=== PATIENT | female | born 1975 | race Caucasian/White ===

== ENCOUNTER 2020-08-11 15:09 | Outpatient (REF) | payer OTHER, SELFPAY | END 2020-08-11 15:10 | disposition home or self-care (01) | LOC: HO.LAB 15:09 | PROVIDERS: Visit Provider Internal Medicine | DX: Z20.822 Contact with and (suspected) exposure to COVID-19 (principal) | CPT/HCPCS: 36415; C9803; U0003; U0005 ==

== ENCOUNTER 2020-12-17 10:00 | Outpatient (RCR) | payer OTHER, SELFPAY | END 2021-06-04 14:26 | disposition home or self-care (01) | LOC: HO.PT 10:00 | PROVIDERS: Visit Provider Family Medicine | DX: M54.5 Low back pain (principal) | CPT/HCPCS: 97110; 97140; 97161; 97530; 97535 ==

== ENCOUNTER 2022-01-03 11:18 | Emergency (ER) | payer OTHER, SELFPAY ==
[2022-01-03 11:48] VITALS: BP 133/88; PULSE 72; RESP 19; TEMP 36.8; O2SAT 100; BMI 29.2
[2022-01-03 11:58] LABS: MANUAL DIFF FLAG NO
[2022-01-03 12:00] LABS: Basophils Absolute Auto 0.1 X10*3/uL (0.0-0.2); Basophils Percent Auto 0.6 % (0-2); Eosinophils Absolute Auto 0.4 X10*3/uL (0.0-0.4); Eosinophils Percent Auto 4.8 % (0-4); Hematocrit 36.1 % (37.0-47.0); Hemoglobin 11.6 g/dl (12.0-16.0); Imm Gran Abs Auto 0.02 X10*3/uL (0.00-0.03); Imm Gran Pct Auto 0.2 % (0.0-0.4); Lymphocytes Absolute Auto 2.6 X10*3/uL (1.2-4.9); Mean Corpuscular HGB Conc 32.1 g/dl (31.0-35.0); Mean Corpuscular Hemoglobin 29.1 pg (27.0-33.0); Mean Corpuscular Volume 90.5 fL (80.0-98.0); Mean Platelet Volume 9.9 fL (9.4-12.3); Monocytes Absolute Auto 0.6 X10*3/uL (0.1-1.2); Monocytes Percent Auto 7.6 % (2-11); Neutrophils Absolute Auto 4.5 x10*3/uL (2.0-8.3); Neutrophils Percent Auto 54.8 % (45-73); Platelet Count 394 X10*3/uL (160-400); Red Blood Count 3.99 X10*6/uL (4.20-5.50); Red Cell Distribution Width 13.8 % (11.0-16.0); White Blood Count 8.2 X10*3/uL (4.8-10.8)
[2022-01-03 12:22] LABS: Alanine Aminotransferase 15 U/L (0-31); Albumin Level 3.9 g/dL (3.5-5.0); Alkaline Phosphatase 59 U/L (39-117); Anion Gap 9 (12-20); Aspartate Amino Transferase 16 U/L (5-31); Bilirubin Total 0.3 mg/dL (0.0-1.0); Blood Urea Nitrogen 4 mg/dL (9-16); Calcium 8.9 mg/dL (8.4-10.2); Carbon Dioxide 26 mmol/L (22-29); Chloride 106 mmol/L (96-108); Creatinine Clr Calc Pharmacy 100.9; Estimated Glomerular Filt Rate > 60; Glucose Random 96 mg/dL (60-115); Sodium 137 mmol/L (135-145); Total Protein 6.5 g/dL (6.5-8.0)
--- NOTE | 2022-01-03 15:20 | ED.GENADULT ---
HPI - General Adult General Chief complaint: Abdominal Pain Stated complaint: L flank pain after eating Time Seen by Provider: 01/03/22 14:57 Source: patient Mode of arrival: ambulatory Limitations: no limitations History of Present Illness HPI narrative: 46-year-old female presents to ED for lower abdominal pain/cramping and diarrhea since traveling from [facility]. patient states the day before last day in [facility] she started having some lower abdominal cramping with watery diarrhea. Patient denies any blood in stool. Patient states no fever or chills, chest pain, shortness of breath, vomiting, vaginal bleeding, dysuria, blood in urine. Patient denies any chest pain, shortness of breath, flank pain, calf pain, coughing up blood. Related Data Previous Rx's Medication Instructions Recorded azithromycin 500 mg tablet See Rx Instructions PO .COMPLEX 01/03/22 travelers diarrhea #3 tabs naproxen 500 mg tablet 500 mg PO BID PRN pain 10 days #20 01/03/22 tabs Allergies Allergy/AdvReac Type Severity Reaction Status Date / Time No Known Allergies Allergy Verified 01/03/22 11:47 Review of Systems Review of Systems: lower abdominal pain and diarrhea PMFSH Past Medical History Medical History (Updated 01/03/22 @ 17:17 by BRYCE Curry) Asthma Chronic back pain Social History Social History Alcohol intake: current Alcohol intake frequency: holidays/special occasions only Patient Tobacco Use Status: Current everyday Tobacco user Smoked in Last 30 Days: Yes Use of substances other than those prescribed or required for medical reasons: No Advance Directives: No Advance Directives Information Provided: Yes Patient : No Physical Exam ED Vital Signs: Vital Signs - 24 hr 01/03/22 11:48 01/03/22 16:00 01/03/22 17:53 Temperature 98.3 F Pulse Rate 72 68 63 Respiratory Rate 19 18 16 Blood Pressure 133/88 119/74 121/75 Pulse Oximetry 100 97 99 Oxygen Delivery Method Room Air Room Air Room Air BMI result Body Mass Index 29.2 Const General: cooperative, healthy appearing, comfortable, no acute distress, well developed, alert, awake and Physically active Orientation/consciousness: oriented to time and patient oriented x3 HENMT Head: Yes normal to inspection, Yes No palpable skull fracture present, Yes normocephalic, Yes atraumatic and No abrasion Eyes General: appearance normal, both eyes and all related structures Neck Neck: Yes normal visual inspection, Yes full ROM, Yes no lymphadenopathy, Yes no meningeal signs, Yes trachea midline, Yes supple, No anterior neck swelling and No tender Chest Chest palpation & inspection: normal inspection of the chest and normal palpation of entire chest wall Resp Effort & Inspection: normal respiratory effort and able to speak in complete sentences Auscultation: clear to auscultation bilaterally Cardio Jugular venous distension: no JVD Heart sounds: S1 normal heart sound present and S2 normal heart sound present GI Inspection: Yes normal to inspection and No abdominal wall ecchymosis Palpation (GI): Soft to palpation, not firm, Tenderness to palpation present (GI) in the LLQ, no guarding and not rigid General: No CVA tenderness and Yes no CVA tenderness Back/Spine/Pelvis Back: no CVA tenderness, No CVA tenderness and No back tenderness Skin General skin exam: no rashes or lesions noted and elasticity normal Neuro General: oriented to time, patient oriented x3, gait normal, no meningeal signs and CN's II-XI intact bilaterally Cranial nerves: Yes CN's II-XII intact bilaterally Extrem General: Yes normal to inspection and Yes full ROM Psych Appearance: grossly normal, well kempt and not disheveled Course Course Course Narrative: Patient does not have any significant abdominal tenderness. Basic labs ordered. Urinalysis ordered. Covid ordered. Patient states past couple days brown diarrhea but now it was loose watery stool and not able to give a stool sample. Reevaluation(s) Reevaluation #1: Labs are normal. Negative for white blood cell count. Abdomen benign soft nontender after medication. UA negative for UTI or . Will discharge as traveler's diarrhea. Time: 17:12 Medical Decision Making [facility] Narrative Medical decision making narrative: Traveler's Diarrhea Lab Data Result diagrams: 01/03/22 11:52 01/03/22 11:52 Labs: Lab Results 01/03/22 01/03/22 01/03/22 Range/Units 11:52 11:52 15:58 WBC 8.2 (4.8-10.8) X10*3/uL RBC 3.99 L (4.20-5.50) X10*6/uL Hgb 11.6 L (12.0-16.0) g/dl Hct 36.1 L (37.0-47.0) % MCV 90.5 (80.0-98.0) fL MCH 29.1 (27.0-33.0) pg MCHC 32.1 (31.0-35.0) g/dl RDW 13.8 (11.0-16.0) % Plt Count 394 (160-400) X10*3/uL MPV 9.9 (9.4-12.3) fL Immature Gran % (Auto) 0.2 (0.0-0.4) % Neut % (Auto) 54.8 (45-73) % Lymph % (Auto) 32.0 (20-40) % [place] % (Auto) 7.6 (2-11) % Eos % (Auto) 4.8 H (0-4) % Baso % (Auto) 0.6 (0-2) % Lymph # (Auto) 2.6 (1.2-4.9) X10*3/uL [place] # (Auto) 0.6 (0.1-1.2) X10*3/uL Eos # (Auto) 0.4 (0.0-0.4) X10*3/uL Baso # (Auto) 0.1 (0.0-0.2) X10*3/uL Abs Immat Gran (auto) 0.02 (0.00-0.03) X10*3/uL Absolute Neuts (auto) 4.5 (2.0-8.3) x10*3/uL Absolute Nucleated RBC 0.000 (0.0-0.012) X10*3/uL Nucleated RBC % (auto) 0.0 (0.0-0.2) /100WBC Sodium 137 (135-145) mmol/L Potassium 4.0 (3.3-5.1) mmol/L Chloride 106 (96-108) mmol/L Carbon Dioxide 26 (22-29) mmol/L Anion Gap 9 L (12-20) BUN 4 L (9-16) mg/dL Creatinine 0.70 (0.5-1.4) mg/dL Estim Creat Clear Calc 100.9 Estimated GFR > 60 Random Glucose 96 (60-115) mg/dL Calcium 8.9 (8.4-10.2) mg/dL Total Bilirubin 0.3 (0.0-1.0) mg/dL AST 16 (5-31) U/L ALT 15 (0-31) U/L Alkaline Phosphatase 59 (39-117) U/L Total Protein 6.5 (6.5-8.0) g/dL Albumin 3.9 (3.5-5.0) g/dL Urine Color Urine Appearance Urine pH (5.0-8.0) Ur Specific [place] (1.005-1.025) Urine Protein (NEG-TRACE) MG/DL Urine Glucose (UA) (NEG) MG/DL Urine Ketones (NEG) MG/DL Urine Blood (NEG) Urine Nitrite (NEG) Ur Leukocyte Esterase (NEG) Urine Test (NEGATIVE) COVID-19 (JENY) Negative (Negative) COVID-19 Clin Com See Note 01/03/22 01/03/22 Range/Units 15:58 15:58 WBC (4.8-10.8) X10*3/uL RBC (4.20-5.50) X10*6/uL Hgb (12.0-16.0) g/dl Hct (37.0-47.0) % MCV (80.0-98.0) fL MCH (27.0-33.0) pg MCHC (31.0-35.0) g/dl RDW (11.0-16.0) % Plt Count (160-400) X10*3/uL MPV (9.4-12.3) fL Immature Gran % (Auto) (0.0-0.4) % Neut % (Auto) (45-73) % Lymph % (Auto) (20-40) % [place] % (Auto) (2-11) % Eos % (Auto) (0-4) % Baso % (Auto) (0-2) % Lymph # (Auto) (1.2-4.9) X10*3/uL [place] # (Auto) (0.1-1.2) X10*3/uL Eos # (Auto) (0.0-0.4) X10*3/uL Baso # (Auto) (0.0-0.2) X10*3/uL Abs Immat Gran (auto) (0.00-0.03) X10*3/uL Absolute Neuts (auto) (2.0-8.3) x10*3/uL Absolute Nucleated RBC (0.0-0.012) X10*3/uL Nucleated RBC % (auto) (0.0-0.2) /100WBC Sodium (135-145) mmol/L Potassium (3.3-5.1) mmol/L Chloride (96-108) mmol/L Carbon Dioxide (22-29) mmol/L Anion Gap (12-20) BUN (9-16) mg/dL Creatinine (0.5-1.4) mg/dL Estim Creat Clear Calc Estimated GFR Random Glucose (60-115) mg/dL Calcium (8.4-10.2) mg/dL Total Bilirubin (0.0-1.0) mg/dL AST (5-31) U/L ALT (0-31) U/L Alkaline Phosphatase (39-117) U/L Total Protein (6.5-8.0) g/dL Albumin (3.5-5.0) g/dL Urine Color YELLOW Urine Appearance CLEAR Urine pH 6.0 (5.0-8.0) Ur Specific [place] >= 1.030 H (1.005-1.025) Urine Protein NEG (NEG-TRACE) MG/DL Urine Glucose (UA) NEG (NEG) MG/DL Urine Ketones NEG (NEG) MG/DL Urine Blood NEG (NEG) Urine Nitrite NEG (NEG) Ur Leukocyte Esterase NEG (NEG) Urine Test NEGATIVE (NEGATIVE) COVID-19 (JENY) (Negative) COVID-19 Clin Com Discharge Plan Discharge Clinical Impression: Diarrhea, travelers' Patient Disposition: Home, Self-Care Instructions: Traveler's Diarrhea (ED) Additional Instructions: labs and UA came back normal. COVID swab came back negative. He will be discharged with antibiotics to treat traveler's diarrhea. Recommend plenty of oral hydration with water, Gatorade, or Powerade. Recommend brat diet ( Bannana, Rice, Apple sauce, and toast). return to ED for any worsening abdominal pain, nausea, vomiting, flank pain, fever, chills, blood in stool, vomiting blood, chest pain, shortness of breath, calf pain, leg swelling, coughing up blood, chest pain on inspiration, or any other concerning symptoms. Please follow-up with primary care provider. Prescriptions: New azithromycin 500 mg tablet See Rx Instructions .ROUTE .COMPLEX Qty: 3 0RF Rx Instructions: For 500 mg dose pack: take 500 mg once daily for 3 days naproxen 500 mg tablet 500 mg PO BID PRN (Reason: pain) 10 Days Qty: 20 0RF Stand Alone Forms: Work/School Release Interventions: ED Discharge Assessment Last Done: 01/03/22 17:56 Discharge Date/Time: 01/03/22 17:56 Print Language: Lithuanian
[2022-01-03] MEDS: Famotidine 20 MG TABLET PO (15:50)
[2022-01-03] MEDS: Simethicone 80 MG TAB.CHEW 160 MG PO (15:50)
[2022-01-03] MEDS: Magnesium Hydrox/Alum Hydrox 30 ML ORAL.SUSP PO (15:52)
[2022-01-03] MEDS: Lidocaine HCl Viscous 2 % 15 ML SOLUTION MUCOUS MEM (15:52)
--- NOTE | 2022-01-03 15:54 | PC.NURSE ---
medicated per provider order. pt report 9/10 abd pain. urine sent to lab
[2022-01-03 16:00] VITALS: BP 119/74; PULSE 68; RESP 18; O2SAT 97
[2022-01-03 16:09] LABS: Appearance Urine CLEAR; Color Urine YELLOW; Glucose Urine UA NEG (NEG); Leukocyte Esterase Urine NEG (NEG); Nitrite Urine NEG (NEG); Specific Gravity - Urine >= 1.030 (1.005-1.025); Urine Blood NEG (NEG); Urine Ketones NEG (NEG); Urine Protein NEG (NEG-TRACE)
[2022-01-03 16:11] LABS: UPreg QC Valid YES; Urine Pregnancy NEGATIVE (NEGATIVE)
[2022-01-03 16:25] LABS: COVID-19 Test Negative (Negative); IDNOW Serial# 16C4AD1C
[2022-01-03 17:53] VITALS: BP 121/75; PULSE 63; RESP 16; O2SAT 99
== END 2022-01-03 17:56 | disposition home or self-care (01) ==
PROVIDERS: Physician Assistant; Emergency Provider Emergency Medicine Emergency Medical Services; PCP Nurse Practitioner Primary Care
DX: R19.7 Diarrhea, unspecified (principal); R10.30 Lower abdominal pain, unspecified; F17.200 Nicotine dependence, unspecified, uncomplicated; Z20.822 Contact with and (suspected) exposure to COVID-19; Z79.899 Other long term (current) drug therapy; Z71.6 Tobacco abuse counseling
CPT/HCPCS: 36415; 80053; 81003; 81025; 85025; 87635; 99283; 99284

== ENCOUNTER 2022-02-12 22:44 | Emergency (ER) | payer OTHER, SELFPAY ==
--- NOTE | ~2022-02-12 | XR_ITS ---
EXAMINATION: XR CHEST CLINICAL INFORMATION: Short of breath COMPARISON: 05/23/2011 TECHNIQUE: Frontal view of the chest was obtained. FINDINGS: Lung volumes are low. Mild central vascular prominence without overt edema. No effusion. No dense consolidation. No pneumothorax. The cardiomediastinal silhouette is within normal limits. XR/XR chest 1V IMPRESSION: Central vascular prominence without overt edema.
--- NOTE | 2022-02-12 22:51 | ED_ITS ---
HPI - SOB/Dyspnea General Chief Complaint: Dyspnea Stated Complaint: asthma Time Seen by Provider: 02/12/22 22:51 Source: patient and EMS Mode of arrival: EMS Limitations: no limitations History of Present Illness HPI Narrative: Patient comes to the emergency room complaining of an asthma exacerbation that started earlier today. Patient attempted giving herself to albuterol palms without any relief. When EMS was called, patient's oxygen saturation was in the mid 80s, patient received 1 DuoNeb, 125 mg of Solu-Medrol and 2 g of magnesium. When patient arrived to emergency room, patient saturating 100% on room air, speaking full sentences. Patient complaining of mild chest tightness, no chest pain. Related Data Previous Rx's Medication Instructions Recorded azithromycin 500 mg tablet See Rx Instructions PO .COMPLEX 01/03/22 travelers diarrhea #3 tabs naproxen 500 mg tablet 500 mg PO BID PRN pain 10 days #20 01/03/22 tabs albuterol sulfate 90 mcg/actuation 2 puff inhalation Q4-6H PRN 02/13/22 aerosol inhaler shortness of breath or wheezing #8.5 grams nirmatrelvir 300 mg (150 mg See Rx Instructions PO .COMPLEX 02/13/22 x2)-ritonavir 100 mg tablet,dose #30 ea pack(EUA) (Paxlovid) prednisone 50 mg tablet 50 mg PO DAILY #5 tabs 02/13/22 Allergies Allergy/AdvReac Type Severity Reaction Status Date / Time No Known Allergies Allergy Verified 01/03/22 11:47 Review of Systems Review of Systems: Constitutional : No Weight loss, No Fever, No Chills, No Night Sweats, No Fatigue, No Malaise ENT/Mouth : No Hearing loss, No Ear Pain, No Nasal Congestion, No Sinus Pain, No Hoarseness, No sore throat, No Rhinorrhea, No Swallowing Difficulty Eyes: No Eye Pain, No Swelling, No Redness, No Foreign Body, No Discharge, No Vision Changes Cardiovascular : No Chest Pain, No SOB, No Dyspnea on Exertion, No Orthopnea, No Edema, No Palpitations Respiratory : No Cough, No Sputum, complaining of wheezing, shortness of breath, chest tightness Gastrointestinal : No Nausea, No Vomiting, No Diarrhea, No Constipation, No abdominal Pain, No Hematochezia, No Melena Genitourinary : no irregular bleeding, No Dysuria, No Urinary Frequency, No Hematuria, No Urinary Incontinence, No Urgency, No Flank Pain, No Urinary Flow Changes, No Hesitancy Musculoskeletal : No joint pain, No Myalgias, No Joint Swelling Skin : No Skin Lesions, No rash Neuro : No Weakness, No Numbness, No Paresthesias, No Loss of Consciousness, No Dizziness, No Headache Psych : No Anxiety/Panic, No Depression, No SI/HI/AH/VH, No Social Issues, Heme/Lymph: No Bruising, No Bleeding,No Lymphadenopathy Endocrine : No Polyuria, No Polydipsia, No Temperature Intolerance [facility] Past Medical History Medical History Asthma Chronic back pain Social History Social History Alcohol intake: current Alcohol intake frequency: holidays/special occasions only Patient Tobacco Use Status: Current everyday Tobacco user Advance Directives: No Advance Directives Information Provided: Yes Physical Exam Vital Signs: Vital Signs: Last Vital Signs Temp 99.7 F 02/12/22 22:52 Pulse 107 H 02/12/22 22:52 Resp 28 H 02/12/22 22:52 BP 120/69 02/12/22 22:52 Pulse Ox 99 02/12/22 22:52 O2 Del Method 02/12/22 22:52 BMI result Body Mass Index 32.4 Const: Other: Appearance: Alert. Oriented X3. No acute distress. Eyes: Pupils equal, round and reactive to light. ENT: Pharynx normal. Neck: Normal inspection. Neck supple. No lymph nodes noted. No crepitus CVS: Normal heart rate and rhythm. Pulses normal. Normal S1 and S2 Respiratory: No respiratory distress. No Wheezing. No rales very minimal and occasional wheezing bilaterally, good air movement Abdomen: Soft and nontender. No rigidity. No distention. Skin: Skin warm and dry. Normal skin color. Normal skin turgor. Extremities: No lower extremity edema. No Lacerations. No Rash Neuro: Oriented X 3. No motor deficit. No sensory deficit. Moving all extremities. No slurred speech. CN 2 through 12 grossly intact Psych: calm, cooperative, normal affect Course Course Course Narrative: Prior to arriving to the hospital, patient received IV magnesium, Solu-Medrol and DuoNeb. Patient receiving 1 dose of albuterol neb Patient's oxygen saturation remains at 99% on room air. Even with ambulation in her room. Patient tested positive for COVID-19. Patient stamps started in the last 24 hours, she is in the window treatment for PAxlovid MDM - SOB/Dyspnea Lab Data Result diagrams: 02/12/22 23:10 02/12/22 23:10 Labs: Lab Results 02/12/22 02/12/22 02/12/22 Range/Units 23:10 23:10 23:10 WBC 8.5 (4.8-10.8) X10*3/uL RBC 3.87 L (4.20-5.50) X10*6/uL Hgb 11.2 L (12.0-16.0) g/dl Hct 34.2 L (37.0-47.0) % MCV 88.4 (80.0-98.0) fL MCH 28.9 (27.0-33.0) pg MCHC 32.7 (31.0-35.0) g/dl RDW 13.7 (11.0-16.0) % Plt Count 331 (160-400) X10*3/uL MPV 10.0 (9.4-12.3) fL Immature Gran % (Auto) 0.4 (0.0-0.4) % Neut % (Auto) 75.1 H (45-73) % Lymph % (Auto) 11.9 L (20-40) % [place] % (Auto) 9.3 (2-11) % Eos % (Auto) 2.7 (0-4) % Baso % (Auto) 0.6 (0-2) % Lymph # (Auto) 1.0 L (1.2-4.9) X10*3/uL [place] # (Auto) 0.8 (0.1-1.2) X10*3/uL Eos # (Auto) 0.2 (0.0-0.4) X10*3/uL Baso # (Auto) 0.1 (0.0-0.2) X10*3/uL Abs Immat Gran (auto) 0.03 (0.00-0.03) X10*3/uL Absolute Neuts (auto) 6.4 (2.0-8.3) x10*3/uL Absolute Nucleated RBC 0.000 (0.0-0.012) X10*3/uL Nucleated RBC % (auto) 0.0 (0.0-0.2) /100WBC Sodium 139 (135-145) mmol/L Potassium 3.6 (3.3-5.1) mmol/L Chloride 106 (96-108) mmol/L Carbon Dioxide 22 (22-29) mmol/L Anion Gap 15 (12-20) BUN 8 L D (9-16) mg/dL Creatinine 0.71 (0.5-1.4) mg/dL Estim Creat Clear Calc 101.0 Estimated GFR > 60 Random Glucose 113 (60-115) mg/dL Calcium 8.8 (8.4-10.2) mg/dL Troponin I High Sens (<3.5-17.0) ng/L COVID-19 (JENY) Positive A (Negative) COVID-19 Clin Com See Note 02/12/22 Range/Units 23:10 WBC (4.8-10.8) X10*3/uL RBC (4.20-5.50) X10*6/uL Hgb (12.0-16.0) g/dl Hct (37.0-47.0) % MCV (80.0-98.0) fL MCH (27.0-33.0) pg MCHC (31.0-35.0) g/dl RDW (11.0-16.0) % Plt Count (160-400) X10*3/uL MPV (9.4-12.3) fL Immature Gran % (Auto) (0.0-0.4) % Neut % (Auto) (45-73) % Lymph % (Auto) (20-40) % [place] % (Auto) (2-11) % Eos % (Auto) (0-4) % Baso % (Auto) (0-2) % Lymph # (Auto) (1.2-4.9) X10*3/uL [place] # (Auto) (0.1-1.2) X10*3/uL Eos # (Auto) (0.0-0.4) X10*3/uL Baso # (Auto) (0.0-0.2) X10*3/uL Abs Immat Gran (auto) (0.00-0.03) X10*3/uL Absolute Neuts (auto) (2.0-8.3) x10*3/uL Absolute Nucleated RBC (0.0-0.012) X10*3/uL Nucleated RBC % (auto) (0.0-0.2) /100WBC Sodium (135-145) mmol/L Potassium (3.3-5.1) mmol/L Chloride (96-108) mmol/L Carbon Dioxide (22-29) mmol/L Anion Gap (12-20) BUN (9-16) mg/dL Creatinine (0.5-1.4) mg/dL Estim Creat Clear Calc Estimated GFR Random Glucose (60-115) mg/dL Calcium (8.4-10.2) mg/dL Troponin I High Sens < 3.5 (<3.5-17.0) ng/L COVID-19 (JENY) (Negative) COVID-19 Clin Com Imaging Data Chest x-ray: Radiologist's impression: FINDINGS: Lung volumes are low. Mild central vascular prominence without overt edema. No effusion. No dense consolidation. No pneumothorax. The cardiomediastinal silhouette is within normal limits. XR/XR chest 1V IMPRESSION: Central vascular prominence without overt edema. ? Discharge Plan Discharge Clinical Impression: Asthma, COVID-19 Patient Disposition: Home, Self-Care Instructions: COVID-19 (Coronavirus Disease 2019) (ED) Additional Instructions: Please follow-up with your primary care physician tomorrow. If you have any worsening or new symptoms, please return to the emergency room or call 911 Prescriptions: New albuterol sulfate 90 mcg/actuation HFA aerosol inhaler 2 puff inhalation Q4-6H PRN (Reason: shortness of breath or wheezing) Qty: 8.5 1RF prednisone 50 mg tablet 50 mg PO DAILY Qty: 5 0RF Paxlovid (EUA) 300 mg (150 mg x 2)-100 mg tablets,dose pack See Rx Instructions .ROUTE .COMPLEX Qty: 30 0RF Rx Instructions: take TWO 150 mg tablets of nirmatrelvir with ONE 100 mg tablet of ritonavir twice daily for 5 days No Action azithromycin 500 mg tablet See Rx Instructions .ROUTE .COMPLEX Qty: 3 0RF Rx Instructions: For 500 mg dose pack: take 500 mg once daily for 3 days naproxen 500 mg tablet 500 mg PO BID PRN (Reason: pain) 10 Days Qty: 20 0RF
[2022-02-12 22:52] VITALS: BP 117/70; BP 120/69; PULSE 105; PULSE 107; RESP 28; TEMP 37.6; O2SAT 98; O2SAT 99; BMI 32.4
--- NOTE | 2022-02-12 22:53 | ECG_ITS ---
Test Reason : DYSPNEA Blood Pressure : / mmHG Vent. Rate : 107 BPM Atrial Rate : 107 BPM P-R Int : 148 ms QRS Dur : 088 ms QT Int : 362 ms P-R-T Axes : 069 035 038 degrees QTc Int : 483 ms Sinus tachycardia Possible Left atrial enlargement Nonspecific ST and T wave abnormality Abnormal ECG No previous ECGs available Referred By: Yen Ireland Electronically Signed By:KONRAD PHAN
[2022-02-12 23:18] LABS: Basophils Absolute Auto 0.1 X10*3/uL (0.0-0.2); Basophils Percent Auto 0.6 % (0-2); Eosinophils Absolute Auto 0.2 X10*3/uL (0.0-0.4); Eosinophils Percent Auto 2.7 % (0-4); Hematocrit 34.2 % (37.0-47.0); Hemoglobin 11.2 g/dl (12.0-16.0); Imm Gran Abs Auto 0.03 X10*3/uL (0.00-0.03); Imm Gran Pct Auto 0.4 % (0.0-0.4); Lymphocytes Percent Auto 11.9 % (20-40); MANUAL DIFF FLAG NO; Mean Corpuscular HGB Conc 32.7 g/dl (31.0-35.0); Mean Corpuscular Hemoglobin 28.9 pg (27.0-33.0); Mean Corpuscular Volume 88.4 fL (80.0-98.0); Monocytes Absolute Auto 0.8 X10*3/uL (0.1-1.2); Monocytes Percent Auto 9.3 % (2-11); Neutrophils Absolute Auto 6.4 x10*3/uL (2.0-8.3); Neutrophils Percent Auto 75.1 % (45-73); Platelet Count 331 X10*3/uL (160-400); Red Blood Count 3.87 X10*6/uL (4.20-5.50); Red Cell Distribution Width 13.7 % (11.0-16.0); White Blood Count 8.5 X10*3/uL (4.8-10.8)
[2022-02-12 23:28] LABS: COVID-19 Test Positive (Negative)
[2022-02-12 23:35] LABS: Anion Gap 15 (12-20); Blood Urea Nitrogen 8 mg/dL (9-16); Calcium 8.8 mg/dL (8.4-10.2); Carbon Dioxide 22 mmol/L (22-29); Chloride 106 mmol/L (96-108); Estimated Glomerular Filt Rate > 60; Glucose Random 113 mg/dL (60-115); Potassium 3.6 mmol/L (3.3-5.1); Sodium 139 mmol/L (135-145)
[2022-02-12 23:37] LABS: Troponin-I High Sensitivity < 3.5 ng/L (<3.5-17.0)
[2022-02-12] MEDS: Albuterol Sulfate (0.083%) 2.5 MG/3 ML VIAL.NEB INHALE (23:37)
[2022-02-13 01:21] VITALS: BP 102/56; PULSE 98; RESP 20; TEMP 36.8; O2SAT 99
== END 2022-02-13 01:51 | disposition home or self-care (01) ==
PROVIDERS: Emergency Provider Emergency Medicine
DX: U07.1 COVID-19 (principal); J45.909 Unspecified asthma, uncomplicated; F17.200 Nicotine dependence, unspecified, uncomplicated
CPT/HCPCS: 36415; 71045; 80048; 84484; 85025; 87635; 93005; 99284

== ENCOUNTER 2022-02-19 11:52 | Outpatient (REF) | payer OTHER, SELFPAY ==
[2022-02-19 12:17] LABS: COVID-19 Test Positive (Negative); IDNOW Serial# 08D9AD1C
== END 2022-02-19 11:53 | disposition home or self-care (01) ==
LOC: HO.LAB 11:52
PROVIDERS: Visit Provider Internal Medicine
DX: Z20.822 Contact with and (suspected) exposure to COVID-19 (principal)
CPT/HCPCS: 87635; C9803

== ENCOUNTER 2022-02-26 12:12 | Outpatient (REF) | payer OTHER, SELFPAY ==
[2022-02-26 13:07] LABS: COVID-19 Test Negative (Negative)
== END 2022-02-26 12:13 | disposition home or self-care (01) ==
LOC: HO.LAB 12:12
PROVIDERS: Visit Provider Internal Medicine
DX: Z20.822 Contact with and (suspected) exposure to COVID-19 (principal)
CPT/HCPCS: 87635; C9803

== ENCOUNTER 2023-12-19 10:12 | Emergency (ER) | payer OTHER, SELFPAY ==
--- NOTE | ~2023-12-19 | CT_ITS ---
EXAMINATION: CT HEAD WITHOUT CONTRAST CLINICAL INFORMATION: Headache COMPARISON: CT head September 27, 2018 TECHNIQUE: Contiguous axial imaging was performed from the skull base to vertex without intravenous administration of contrast. Coronal and sagittal reformatted images are performed at the CT scanner. [This CT examination was performed using dose optimization techniques as appropriate, variously including the following: *Automated exposure control *Adjustment of mA and/or kV according to patient size (this includes techniques or standardized protocols for targeted exams where dose is matched to indication/reason for exam; i.e. extremities or head) *Use of iterative reconstruction technique] DLP: 581 mGy-cm. FINDINGS: There is no evidence of acute intracranial hemorrhage or territorial infarction. No abnormal mass-effect or midline shift is seen. [place] to white matter differentiation is well preserved. No extra-axial fluid collections are identified. The ventricles are normal in size. There is no abnormal attenuation within the brain parenchyma. There is a tiny hyperdensity in the right basal ganglia still present unchanged since CAT scan September 27, 2018 consistent with a small calcification. Axial image 166/269 series 6. There is no osseous abnormality. There is density opacifying the dependent portion of the right and left maxillary sinus. On the left this is likely due to a large retention cyst. The right there is some fluid in mucosal thickening. Small air-fluid level present in the left sphenoid sinus. Trace fluid in the left mastoid air cells. Right mastoid air cells are normally aerated. Middle ear cavity is normally aerated. Frontal sinuses are hypoplastic. CT/CT head/brain wo IV con IMPRESSION: No acute intracranial pathology.
[2023-12-19 10:38] VITALS: BP 122/98; PULSE 75; RESP 16; TEMP 36.6; O2SAT 100; BMI 29.2
--- NOTE | 2023-12-19 10:44 | ECG_ITS ---
Test Reason : RT SIDED CHEST PAIN Blood Pressure : / mmHG Vent. Rate : 069 BPM Atrial Rate : 069 BPM P-R Int : 148 ms QRS Dur : 082 ms QT Int : 408 ms P-R-T Axes : 048 030 035 degrees QTc Int : 437 ms Normal sinus rhythm Normal ECG When compared to the previous EKG of No significant changes seen Referred By: Generic ED Physician Electronically Signed By:BETTYE DUPONT MD
--- NOTE | 2023-12-19 13:57 | ED_ITS ---
HPI - Headache General Chief Complaint: Headache Stated Complaint: r sided head pain down into shoulder Time Seen by Provider: 12/19/23 16:15 Source: patient Mode of arrival: ambulatory History of Present Illness ED Provider: Dr. 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 Related Data Home Medications ?Medication ?Instructions ?Recorded ?Confirmed estradiol 0.025 mg/24 hr weekly 1 patch transdermal QWEEK 11/14/23 transdermal patch fluoride (sodium) 1.1 % dental PO 11/14/23 paste fluticasone propionate 110 1 puff inhalation BID 11/14/23 mcg/actuation HFA aerosol inhaler gabapentin 300 mg capsule 900 mg PO TID 11/14/23 meclizine 25 mg tablet 25 mg PO TID 11/14/23 meloxicam 15 mg tablet 15 mg PO DAILY 11/14/23 naloxone 4 mg/actuation nasal spray intranasal 11/14/23 oxycodone 10 mg tablet,crush mg PO 11/14/23 resistant,extended release 12 hr (OxyContin) oxycodone-acetaminophen 5 mg-325 1 tab PO QID PRN 11/14/23 mg tablet progesterone micronized 200 mg mg PO 11/14/23 capsule Previous Rx's ?Medication ?Instructions ?Recorded albuterol sulfate 90 mcg/actuation 2 puff inhalation Q4-6H PRN 02/13/22 aerosol inhaler shortness of breath or wheezing #8.5 grams cyclobenzaprine 10 mg tablet 10 mg PO BEDTIME PRN muscle spasm 12/19/23 #5 tabs Allergies Allergy/AdvReac Type Severity Reaction Status Date / Time buprenorphine [From Butrans] Allergy Unknown Nausea, Verified 12/19/23 10:43 pruritis, appetite supression morphine [From MS Contin] Allergy Unknown Nausea, Verified 12/19/23 10:43 rash Review of Systems 2 Review of Systems: Pertinent positives and negatives as stated in HPI PMFSH Past Medical History Source: nursing notes reviewed Medical History Chronic sacroiliac joint pain Family history of breast cancer Osteoarthritis Neuropathy Pain in buttock Chronic low back pain Pain in lower limb Narrowing of intervertebral disc space Asthma Chronic back pain Surgical History H/O: knee surgery Family History Family History Mother Type 2 diabetes mellitus Sister Breast cancer Social History Social History Alcohol intake: current Alcohol intake frequency: holidays/special occasions only Patient Tobacco Use Status: Current everyday Tobacco user Advance Directives: No Advance Directives Information Provided: Yes Physical Exam 2 Vital Signs: Vital Signs: Last Vital Signs Temp 97.8 F 12/19/23 10:38 Pulse 75 12/19/23 10:38 Resp 16 12/19/23 10:38 BP 122/98 H 12/19/23 10:38 Pulse Ox 100 12/19/23 10:38 O2 Del Method Room Air 12/19/23 10:38 BMI result Body Mass Index 29.2 VITAL SIGNS: Reviewed. GENERAL: Well developed, well nourished, in no acute distress. HEAD: Normocephalic/atraumatic EYES: PERRLA, EOMI EARS: Ext canals without abnormality, TMs non-bulging and non-erythematous NOSE: Nares patent bilateral OROPHARYNX: no oral lesions noted, posterior pharynx clear and non-erythematous without noted tonsillar enlargement/erythema/exudates NECK: Supple, no adenopathy, there is noted muscle firmness along the shoulder trapezius on the right that extends up to the right basal skull, no midline cervical spine tenderness to palpation or step-offs noted LUNGS: Normal breath sounds. No adventitious sounds or accessory muscle use. SpO2<100> CARDIOVASCULAR: Regular rate and rhythm without noted murmurs ABDOMEN: Soft, non-tender, non-distended with bowel sounds. MUSCULOSKELETAL: No tenderness, deformities, or effusions noted on gross inspection. EXTREMITIES: No cyanosis, clubbing or edema. SKIN: Inspection of the skin reveals no rashes NEUROLOGIC: Alert and oriented x 4. Strength and sensation to light touch were grossly intact x 4, no facial asymmetry, no pronator drift, cranial nerves 2-12 are grossly intact. Course Course Course Narrative: This is a rapid medical exam completed by Felicia GROVERN: Additional HPI, ROS, PE not included below will be deferred to primary provider. Right sided headache since this morning radiating into right ear, neck, and chest with radiation to right arm with tingling in fingers Plan: CT head, lab, tylenol, ibuprofen Medications Administered Discontinued Medications Generic Name Dose Route Start Last Admin Trade Name Luisa PRN Reason Stop Dose Admin Acetaminophen 650 mg 12/19/23 13:57 12/19/23 15:53 Acetaminophen 325 Mg Tablet PO 12/19/23 13:58 650 mg ONCE ONE Administration Ibuprofen 600 mg 12/19/23 13:57 12/19/23 15:54 Ibuprofen 600 Mg Tablet PO 12/19/23 13:58 600 mg ONCE ONE Administration Medical Decision Making Medical Decision Making [facility] Narrative: 48-year-old female with history and clinical presentation, DDX: Cervical radiculopathy, muscle spasm, no focal signs otherwise and do not suspect meningitis, and no clinical evidence of AOM or mastoiditis. I reviewed all investigations and hematologic indices are grossly within normal limits without no noted abnormalities. Chemistries indices negative for evidence of NADEEN/electrolyte or liver enzyme derangements. Head CT negative for intracranial hemorrhage or mass effect. My interpretation is that patient is suffering from muscle spasm, she received combination analgesics and will be given additional muscle relaxants since her is driving her, otherwise patient is encouraged to follow-up with the primary care doctor for re-evaluation further outpatient management. Differential Diagnosis Differential Diagnoses: The differential diagnosis associated with the presentation includes Please see the discussion Admission/Observation Consideration of admission/observation: Escalation of care including admission/observation considered Please see the discussion Lab Data [facility] Lab Attestation statement: I reviewed the patient's lab results. Please see the discussion above 12/19/23 14:25 12/19/23 14:25 Labs: Lab Results 12/19/23 Range/Units 14:25 WBC 7.3 (4.8-10.8) X10*3/uL RBC 4.29 (4.20-5.50) X10*6/uL Hgb 12.5 (12.0-16.0) g/dl Hct 37.9 (37.0-47.0) % MCV 88.3 (80.0-98.0) fL MCH 29.1 (27.0-33.0) pg MCHC 33.0 (31.0-35.0) g/dl RDW 14.0 (11.0-16.0) % Plt Count 399 (160-400) X10*3/uL MPV 9.8 (9.4-12.3) fL Immature Gran % (Auto) 0.1 (0.0-0.4) % Neut % (Auto) 55.1 (45-73) % Lymph % (Auto) 35.3 (20-40) % [place] % (Auto) 5.8 (2-11) % Eos % (Auto) 3.2 (0-4) % Baso % (Auto) 0.5 (0-2) % Lymph # (Auto) 2.6 (1.2-4.9) X10*3/uL [place] # (Auto) 0.4 (0.1-1.2) X10*3/uL Eos # (Auto) 0.2 (0.0-0.4) X10*3/uL Baso # (Auto) 0.0 (0.0-0.2) X10*3/uL Abs Immat Gran (auto) 0.01 (0.00-0.03) X10*3/uL Absolute Neuts (auto) 4.0 (2.0-8.3) x10*3/uL Absolute Nucleated RBC 0.000 (0.0-0.012) X10*3/uL Nucleated RBC % (auto) 0.0 (0.0-0.2) /100WBC Sodium 142 (135-145) mmol/L Potassium 3.8 (3.3-5.1) mmol/L Chloride 107 (96-108) mmol/L Carbon Dioxide 28 (22-29) mmol/L Anion Gap 11 L (12-20) BUN 7 L (9-16) mg/dL Creatinine 0.58 (0.5-1.4) mg/dL Estim Creat Clear Calc 119.2 Estimated GFR > 60 Random Glucose 124 H (60-115) mg/dL Calcium 10.0 D (8.4-10.2) mg/dL Total Bilirubin 0.3 (0.0-1.0) mg/dL AST 15 (5-31) U/L ALT 14 (0-31) U/L Alkaline Phosphatase 72 (39-117) U/L Total Protein 7.6 (6.5-8.0) g/dL Albumin 4.4 (3.5-5.0) g/dL Independent Interpretation I performed an independent interpretation of an: EKG Interpretation: Normal sinus rhythm, HR-69, no STEMI, MO/QRS/QTC is within normal limits and there are no acute changes when compared to prior EKGs. Radiology Impression Discussion of test interpretation with radiology: I have reviewed the radiologist's reading. Radiologist Impression: Please see the discussion above External Record Review External record reviewed: Outpatient record, Prior outpatient labs and Prior outpatient radiology Critical Care Time Critical Care Time Critical Care Time: Yes Total Critical Care Time: 30 Attestation: Insert critical Discharge Plan Discharge Clinical Impression: Muscle spasm Instructions: Muscle Spasm (ED) Additional Instructions: 1. Tylenol 1000 mg, orally, every 6 hours as needed for pain control. Do not exceed 4000 mg within 24 hours 2. Ibuprofen 400 mg, orally with the, every 6 hours as needed for pain control. 3. Lidocaine patch, apply to area of maximal tenderness as directed on the outside packaging. 4. You have been given a prescription for muscle relaxant, but you should be following up with your primary care doctor in the next 1-2 days Return to the ER for any worsening symptoms. Prescriptions: New cyclobenzaprine 10 mg tablet 10 mg PO BEDTIME PRN (Reason: muscle spasm) Qty: 5 0RF No Action albuterol sulfate 90 mcg/actuation HFA aerosol inhaler 2 puff inhalation Q4-6H PRN (Reason: shortness of breath or wheezing) Qty: 8.5 1RF oxycodone-acetaminophen 5-325 mg tablet 1 tab PO QID PRN gabapentin 300 mg capsule 900 mg PO TID naloxone 4 mg/actuation spray,non-aerosol intranasal progesterone micronized 200 mg capsule PO estradiol 0.025 mg/24 hr patch weekly 1 patch transdermal QWEEK oxycodone [OxyContin] 10 mg tablet,oral only,ext.rel.12 hr PO meloxicam 15 mg tablet 15 mg PO DAILY fluoride (sodium) 1.1 % paste PO meclizine 25 mg tablet 25 mg PO TID fluticasone propionate 110 mcg/actuation HFA aerosol inhaler 1 puff inhalation BID Print Language: Dominican
[2023-12-19 14:28] LABS: MANUAL DIFF FLAG NO
[2023-12-19 14:30] LABS: Basophils Percent Auto 0.5 % (0-2); Eosinophils Absolute Auto 0.2 X10*3/uL (0.0-0.4); Eosinophils Percent Auto 3.2 % (0-4); Hematocrit 37.9 % (37.0-47.0); Hemoglobin 12.5 g/dl (12.0-16.0); Imm Gran Abs Auto 0.01 X10*3/uL (0.00-0.03); Imm Gran Pct Auto 0.1 % (0.0-0.4); Lymphocytes Absolute Auto 2.6 X10*3/uL (1.2-4.9); Lymphocytes Percent Auto 35.3 % (20-40); Mean Corpuscular Hemoglobin 29.1 pg (27.0-33.0); Mean Corpuscular Volume 88.3 fL (80.0-98.0); Mean Platelet Volume 9.8 fL (9.4-12.3); Monocytes Absolute Auto 0.4 X10*3/uL (0.1-1.2); Monocytes Percent Auto 5.8 % (2-11); Neutrophils Percent Auto 55.1 % (45-73); Platelet Count 399 X10*3/uL (160-400); Red Blood Count 4.29 X10*6/uL (4.20-5.50); White Blood Count 7.3 X10*3/uL (4.8-10.8)
[2023-12-19 14:46] LABS: Alanine Aminotransferase 14 U/L (0-31); Albumin Level 4.4 g/dL (3.5-5.0); Alkaline Phosphatase 72 U/L (39-117); Anion Gap 11 (12-20); Aspartate Amino Transferase 15 U/L (5-31); Bilirubin Total 0.3 mg/dL (0.0-1.0); Blood Urea Nitrogen 7 mg/dL (9-16); Carbon Dioxide 28 mmol/L (22-29); Chloride 107 mmol/L (96-108); Creatinine Clr Calc Pharmacy 119.2; Estimated Glomerular Filt Rate > 60; Glucose Random 124 mg/dL (60-115); Potassium 3.8 mmol/L (3.3-5.1); Sodium 142 mmol/L (135-145); Total Protein 7.6 g/dL (6.5-8.0)
[2023-12-19] MEDS: Acetaminophen 325 MG TABLET 650 MG PO (15:53)
[2023-12-19] MEDS: Ibuprofen 600 MG TABLET PO (15:54)
[2023-12-19 17:02] VITALS: BP 120/67; PULSE 73; RESP 16; TEMP 37.2; O2SAT 99
[2023-12-19] MEDS: Cyclobenzaprine HCl 10 MG TABLET PO (17:04)
[2023-12-19 19:00] VITALS: BP 120/67; PULSE 73; RESP 16; TEMP 37.2; O2SAT 99
== END 2023-12-19 19:01 | disposition home or self-care (01) ==
PROVIDERS: Nurse Practitioner Family; Emergency Provider Student in an Organized Health Care Education/Training Program
DX: M62.830 Muscle spasm of back (principal); R51.9 Headache, unspecified; R07.89 Other chest pain; M54.2 Cervicalgia; Z79.899 Other long term (current) drug therapy
CPT/HCPCS: 36415; 70450; 80053; 85025; 93005; 99284; 99285

== ENCOUNTER → 2023-12-19 10:44 | Outpatient (BNV) | payer OTHER, SELFPAY | PROVIDERS: Emergency Provider Student in an Organized Health Care Education/Training Program; Visit Provider Internal Medicine Cardiovascular Disease | DX: R07.89 Other chest pain (principal) | CPT/HCPCS: 93010 ==

== ENCOUNTER 2024-06-20 13:57 | Outpatient (REF) | payer OTHER, SELFPAY ==
[2024-06-21 06:09] LABS: CT PCR NOT DETECTED (Not Detect.); NG PCR NOT DETECTED (Not Detect.)
[2024-06-21 11:00] LABS: HPV 16,18/45 See PAP report
[2024-06-21 11:12] LABS: Bacterial Vaginosis PCR POSITIVE (Negative); Candida Group PCR NOT DETECTED (Not Detect); Candida glab krusei PCR NOT DETECTED (Not Detect); Trichomonas vaginalis PCR NOT DETECTED (Not Detect)
== END 2024-06-20 13:58 | disposition home or self-care (01) ==
LOC: HO.LAB 13:57
PROVIDERS: Visit Provider Advanced Practice Midwife
DX: Z01.419 Encounter for gynecological examination (general) (routine) without abnormal findings (principal); N89.8 Other specified noninflammatory disorders of vagina; Z20.2 Contact with and (suspected) exposure to infections with a predominantly sexual mode of transmission
CPT/HCPCS: 0352U; 87491; 87591; 87624; 88175

== ENCOUNTER 2024-06-20 13:59 | Outpatient (AMB) | payer OTHER, SELFPAY ==
[2024-06-20 14:04] VITALS: BP 118/78; BMI 30.4
--- NOTE | 2024-06-20 14:04 | MHC.OFFVIS ---
Vital Signs 06/20/24 14:04 Height 5 ft 4 in Weight 177 lb BMI 30.4 BP 118/78 Intake Visit Reasons: New Patient Annual Information Interpreted: clinical only Signs And Displays Salesperson: Signs And Displays Salesperson Present Allergies buprenorphine [From Butrans] Allergy (Unknown, Verified 06/20/24 14:05) Nausea, pruritis, appetite supression morphine [From MS Contin] Allergy (Unknown, Verified 06/20/24 14:05) Nausea, rash Medication List - Last Reconciled 06/20/24 by Vandana Wylie CNM albuterol sulfate 90 mcg/actuation 2 puffs inhalation Q4-6H PRN cyclobenzaprine 10 mg PO BEDTIME PRN fluoride (sodium) 1.1% PO fluticasone propionate 110 mcg/actuation 1 puff inhalation BID gabapentin 900 mg PO TID meclizine 25 mg PO TID meloxicam 15 mg PO DAILY naloxone 4 mg/actuation intranasal oxycodone ER (OxyContin) mg PO oxycodone-acetaminophen 5-325 mg 1 tab PO QID PRN progesterone micronized mg PO Is last menstrual period known: No Post menopausal: Yes (2021) HPI HPI New Patient Annual: Details: 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 She says she has not had a periods since then she has not had poison information specialist care since then because of the pandemic. 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 She is sexually active with her she does not have any particular worries but she is open to testing with the exam. She has not had a mammogram years either she thinks she had 1 in [facility] she does not know if she had whenever at [place] were not she would like that to be ordered too. The end of the visit she stated that sometimes she feels like she can not fully empty her bladder. She had difficulty figuring out how to do a Kegel in the visit but she was able to do a good Kegel in the end. I recommend she work on trying to void regularly a not hold her urine too long and also the practice the Kegel's and if any difficulty continues she should follow-up with her primary care provider in July she sees her and consider which referral she needs. Also at the end of the visit she inquired about a small pea-sized flesh colored soft lesion at the top of her labia and she is wondering if that can be we will have patient see typing office worker at the [facility] Medical History (Updated 06/20/24 @ 15:02 by Vandana Wylie CNM) Hx of menorrhagia Chronic sacroiliac joint pain Family history of breast cancer Osteoarthritis Neuropathy Pain in buttock Chronic low back pain Pain in lower limb Narrowing of intervertebral disc space Asthma Chronic back pain Surgical History (Updated 06/20/24 @ 14:35 by Vandana Wylie CNM) H/O: knee surgery Family History Mother Type 2 diabetes mellitus Sister Breast cancer Social History Alcohol intake: current Alcohol intake frequency: holidays/special occasions only Patient Tobacco Use Status: Current everyday Tobacco user Female Reproductive History Menstrual Age of Menarche: 12 Duration of menses: 3-5 days control method: none Total pregnancies: 2 Full term: 2 History of abnormal pap smear: No (previous pap unsure date ,neg per patient) Physical Exam Vital Signs: Last Vital Signs BP 118/78 06/20/24 14:04 BMI result Body Mass Index 30.4 Const General: healthy appearing, comfortable, no acute distress, well developed and alert Nutritional Appearance: average body habitus Orientation/consciousness: patient oriented x3 Limitations: no limitations HEENT Head: Yes normocephalic Neck Neck: Yes normal visual inspection Chest Chest palpation & inspection: normal inspection of the chest Breast/axilla inspection: normal inspection of the breasts and normal inspection of the axillae Breast/axilla palpation: normal palpation of the breasts and normal palpation of the axillae Resp Effort & Inspection: normal respiratory effort GI Inspection: Yes normal to inspection, No Abdominal wall edema and No distended Palpation (GI): Soft to palpation and nontender Other: Normal external though she has a small pea-sized mole type lesion at top of labia majora. Vagina is pink and moist multiparous cervix pink healthy appearing deep in pelvis scant clear to white discharge uterus is small firm mobile anteverted nontender bladder slightly full. Adnexa nontender patient had difficulty recreate in a Kegel but once she figured it out she had a good muscle tone her Kegel reviewed doing frequent strong Kegel's like she did and frequently allowing herself void at least every 1-2 hours if still getting challenges with urination talk with her primary care provider as possibly could be connected to her lower back/disc issues. General: Yes bladder normal to palpation External Female Exam: normal external appearance and normal appearance of the urethra Speculum Exam - Vagina: normal appearance of the vagina, normal palpation and normal vaginal discharge Speculum Exam - Cervix: normal appearance of the cervix, normal palpation and nontender Bimanual exam- vagina & uterus: normal bimanual exam, normal palpation, uterine size normal, bladder normal to palpation, consistency normal, normal palpation, uterine mobility normal, uterine shape normal, No Cervical tenderness present, non-tender and no cervical motion tenderness Bimanual Exam- Adnexa, other: normal adnexae, no masses, normal and No adnexal tenderness Female genitals images: 1. Pea size soft flesh colored lesion possibly a mole. Neuro General: patient oriented x3 Assessment & Plan Assessment & Plan (1) History of endometrial ablation: Code(s): Z98.890 - Other specified postprocedural states Category: Surgical (2) Women's annual routine gynecological examination: Code(s): Z01.419 - Encounter for gynecological examination (general) (routine) without abnormal findings Category: Medical (3) Cervical cancer screening: Code(s): Z12.4 - Encounter for screening for malignant neoplasm of cervix Category: Medical (4) Family history of breast cancer in first degree relative: Comment: her sister Code(s): Z80.3 - Family history of malignant neoplasm of breast Category: Medical Plan -----Discussed in this visit the following: healthy balanced diet, regular and consistent exercise, getting recommended health screens, doing the best she can for her particular health concerns, kegel exercises, pap smear screening and followup recommendations, mammography screening and SBE, normal changes in cycles in her life stage--- . I will order mammogram for her as it has been a few years and gave her written instructions on doing Kegel's. She preferred Maltese. I recommend trying to void on a regular basis and not hold her as sometimes it can be difficult to void if her bladders over full if doing the Kegel's and trying to void regularly does not alleviate her symptoms she should talk with her primary care provider as it is possible could be connected to her lower back/disc issues. Normal external though she has a small pea-sized mole type lesion at top of labia majora. Vagina is pink and moist multiparous cervix pink healthy appearing deep in pelvis scant clear to white discharge uterus is small firm mobile anteverted nontender bladder slightly full. Adnexa nontender patient had difficulty recreate in a Kegel but once she figured it out she had a good muscle tone her Kegel reviewed doing frequent strong Kegel's like she did and frequently allowing herself void at least every 1-2 hours if still getting challenges with urination talk with her primary care provider as possibly could be connected to her lower back/disc issues. She is wondering if the lesion could be possibly removed it is unclear whether not it would be a dermatologic thing or gynecologic issue. we will have her see the typing office worker at hospital. Orders: Orders Bacterial Vaginosis Panel Today N89.8 - Other specified noninflammatory disorders of vagina Pap Smear Today Z01.419 - Encounter for gynecological examination (general) (routine) without abnormal findings MM tomosynthesis screening BI Today Z01.419 - Encounter for gynecological examination (general) (routine) without abnormal findings, Z12.31 - Encounter for screening mammogram for malignant neoplasm of breast, Z12.4 - Encounter for screening for malignant neoplasm of cervix, Z80.3 - Family history of malignant neoplasm of breast, Z98.890 - Other specified postprocedural states CT NG by PCR Today N89.8 - Other specified noninflammatory disorders of vagina, Z20.2 - Contact with and (suspected) exposure to infections with a predominantly sexual mode of transmission Coding Level of Care Code New Pt Prev Care 40-64y([id number]) Diagnoses History of endometrial ablation Z98.890 Women's annual routine gynecological examination Z01.419 Cervical cancer screening Z12.4 Family history of breast cancer in first degree relative Z80.3
== END 2024-06-20 15:18 | disposition home or self-care (01) ==
PROVIDERS: Visit Provider Advanced Practice Midwife
DX: Z01.419 Encounter for gynecological examination (general) (routine) without abnormal findings (principal)
CPT/HCPCS: 99386; 99459

== ENCOUNTER 2024-07-10 12:45 | Outpatient (REF) | payer OTHER, SELFPAY ==
--- NOTE | ~2024-07-10 | MM_ITS ---
EXAMINATION: MM SCREENING DIGITAL BREAST TOMOSYNTHESIS, BILATERAL CLINICAL INFORMATION: Screening. Asymptomatic. COMPARISON: Mammography: Comparison is made with available priors TECHNIQUE: Digital breast mammography with tomosynthesis is performed in both the craniocaudal and mediolateral oblique views along with computer-aided detection (CAD). FINDINGS: The breasts are heterogeneously dense, which may obscure small masses (ACR BI-RADS breast composition Category c). Right marker clip. There are no significant masses, abnormal calcifications, or other abnormalities. MM/MM tomosynthesis screening BI IMPRESSION: No mammographic evidence of malignancy. ASSESSMENT: BI-RADS BI-RADS 2 - Benign Findings RECOMMENDATION: Routine annual mammography screening. 1 year F/U This examination should not preclude the clinical evaluation of a suspicious palpable abnormality. This patient's information was entered into a reminder system with a target due date for their next mammogram. Electronically signed by: Vivian Buchanan DO 07/17/2024 04:23 PM YESIKA
== END 2024-07-10 12:46 | disposition home or self-care (01) ==
LOC: HO.MAMMO 12:45
PROVIDERS: PCP Nurse Practitioner Primary Care; Visit Provider Advanced Practice Midwife
DX: Z12.31 Encounter for screening mammogram for malignant neoplasm of breast (principal)
CPT/HCPCS: 77063; 77067

== ENCOUNTER → 2024-07-10 13:15 | Outpatient (BNV) | payer OTHER, SELFPAY | PROVIDERS: PCP Nurse Practitioner Primary Care; Visit Provider Internal Medicine | DX: Z12.31 Encounter for screening mammogram for malignant neoplasm of breast (principal) | CPT/HCPCS: 77063; 77067 ==

== ENCOUNTER 2024-08-31 19:44 | Emergency (ER) | payer MEDICAID, SELFPAY ==
--- NOTE | ~2024-08-31 | XR_ITS ---
CLINICAL HISTORY: R elbow pain Three views of the right elbow. COMPARISON: None FINDINGS: No elbow joint effusion. Anterior humeral and radiocapitellar lines are maintained. Visualized portions of the humerus, radius and ulna appear intact. IMPRESSION: 1. No radiographic evidence of acute injury to the right elbow. This document has been electronically signed by: Melvin Stanley MD on 08/31/2024 20:31:50
--- NOTE | ~2024-08-31 | XR_ITS ---
CLINICAL HISTORY: R shoulder dislocation Three views of the right shoulder. COMPARISON: XR right shoulder dated 08/05/13 at 02:07 EST FINDINGS: Proximal right humerus, the right scapula, and the right clavicle appear intact. Decreased glenohumeral joint space. Osteophytes present along the inferior margin of the right glenoid. Mild hypertrophy of the right acromioclavicular joint. Visualized portions of the right lung are clear. IMPRESSION: 1. No radiographic evidence of acute injury to the right shoulder. 2. Hgtz-mo-nxvrwsgo degenerative changes of the right shoulder. This document has been electronically signed by: Melvin Stanley MD on 08/31/2024 20:31:22
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
[2024-08-31 20:01] VITALS: BP 142/83; PULSE 103; RESP 20; TEMP 36.9; O2SAT 98; BMI 30.9
--- NOTE | 2024-08-31 20:07 | PC.NURSE ---
trige providers preformed reduction in triage, sling placed.
[2024-08-31] MEDS: Ketorolac Tromethamine 15 MG/ML VIAL IM (21:36)
[2024-08-31] MEDS: oxyCODONE HCl Immed Release 5 MG TABLET PO (21:36)
[2024-08-31 22:17] VITALS: BP 110/71; PULSE 82; RESP 16; TEMP 36.7; O2SAT 99
[2024-08-31 22:23] VITALS: BP 110/71; PULSE 82; RESP 16; TEMP 36.7; O2SAT 99
== END 2024-08-31 22:24 | disposition home or self-care (01) ==
PROVIDERS: Emergency Provider Emergency Medicine
DX: S43.004A Unspecified dislocation of right shoulder joint, initial encounter (principal); M25.511 Pain in right shoulder; Y04.2XXA Assault by strike against or bumped into by another person, initial encounter; Y93.9 Activity, unspecified; Y92.89 Other specified places as the place of occurrence of the external cause; Y99.8 Other external cause status; F17.210 Nicotine dependence, cigarettes, uncomplicated; Z79.899 Other long term (current) drug therapy
CPT/HCPCS: 73030; 73080; 96372; 99284; J1885

== ENCOUNTER → 2024-08-31 19:59 | Outpatient (BNV) | payer MEDICAID, SELFPAY | PROVIDERS: Emergency Provider Emergency Medicine; Visit Provider Radiology Diagnostic Radiology | DX: M19.011 Primary osteoarthritis, right shoulder (principal); M25.521 Pain in right elbow | CPT/HCPCS: 73030; 73080 ==

== ENCOUNTER 2024-09-07 10:18 | Outpatient (AMB) | payer MEDICAID, SELFPAY ==
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
[2024-09-07 10:28] VITALS: BMI 30.7
--- OUTSIDE RECORDS SUMMARY | 2024-09-07 11:32 | XMS_ITS | Clinical Summary ---
Author Organization [facility] Address [address] [place] [address] Care Team Providers Care Rn Rehab Name Role Phone Unavailable Primary Care Provider Unavailabl e Allergies No known active allergies Medications Medication Sig Dispensed Refills Start Date End Date Status oxyCODONE-acetaminop hen (PERCOCET) 5-325 MG per tablet Take 1 tablet by mouth 3 (three) times a day. 0 Active oxyCODONE HCl (ROXICODONE) 10 MG TABS Take 10 mg by mouth every night at bedtime. 0 Active gabapentin (NEURONTIN) 300 MG capsule Take 300 mg by mouth 3 (three) times a day. 0 Active ALBUTEROL IN Inhale into the lungs continuous prn. 0 Active Active Problems No known active problems Social History Tobacco Use Types Packs/Day Years Used Date Smoking Tobacco: Former Smokeless Tobacco: Never Alcohol Use Standard Drinks/Week Comments Yes 0 (1 standard drink = 0.6 oz pur e alcohol) occas Sex and Gender Information Value Date Recorded Sex Assigned at Female 03/30/2021 11:30 AM EDT Gender Identity Not on file Sexual Orientation Not on file Job Start Date Occupation Industry Not on file Not on file Not on file Last Filed Vital Signs Vital Sign Reading Time Taken Comments Blood Pressure 115/71 04/13/2021 2:10 PM EDT Pulse 77 04/13/2021 2:10 PM EDT Temperature 36.9 ??C (98.4 ??F) 04/13/2021 2:00 PM ED T Respiratory Rate 16 04/13/2021 2:10 PM EDT Oxygen Saturation 97% 04/13/2021 2:10 PM EDT Inhaled Oxygen Concentration - - Weight 79.8 kg (176 lb) 04/08/2021 11:43 AM EDT Height 162.6 cm (5' 4 ) 04/08/2021 11:43 AM EDT Body Mass Index 30.21 04/08/2021 11:43 AM EDT Plan of Treatment Health Maintenance Due Date Last Done Comments Hepatitis B Vaccines (1 of 3 - 3-dose series) 1975 Hepatitis C Screening 1975 COVID-19 Vaccine (#1) 1975 Depression Screening 1987 BMI Counseling 1993 Preventative Health Evaluation 1993 Cervical Cancer Screening (P ap Smear) 1996 Colon Cancer Screening (Colonoscopy) 2020 DTap / Tdap / Td (2 - Td or Tdap) 11/10/2022 013 Influenza Vaccine (#1) 2024 07/26/2013 Pneumococcal Vaccine Aged Out No long er eligible based on patient's age to complete this topic RSV Ped < 20 months Aged Out No longe r eligible based on patient's age to complete this topic
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
--- OUTSIDE RECORDS SUMMARY | 2024-09-07 11:32 | XMS_ITS | Encounter Summary ---
Author Organization [employer] [facility] Address [address] [place] [address] [address] [place] [address] Care Team Providers Care Phone Engineer Name Role Phone Unavailable Primary Care Provider Unavailabl e Encounter Details Date Type Department Care Team (Latest Contact Info) Description 01/29/2019 Abstract C CONVERSIONS Dental, Provider, DDS Social History Tobacco Use Types Packs/Day Years Used Date Smoking Tobacco: Never Assessed Comments Unknown Sex and Gender Information Value Date Recorded Sex Assigned at Female 05/03/2022 10:16 AM EDT Legal Sex Female 10:16 AM EDT Gender Identity Female 05/03/2022 10:16 AM EDT Sexual Orientation Straight 05/03/2022 10 :16 AM EDT documented as of this encounter Plan of Treatment Not on file documented as of this encounter Visit Diagnoses Not on filedocumented in this encounter
--- OUTSIDE RECORDS SUMMARY | 2024-09-07 11:32 | XMS_ITS | Clinical Summary ---
Author Organization [address] Address [address] [place] [phone] Phone Care Team Providers Care Ore Charger Name Role Phone Pcp, Does Not Have A Primary Care Provider Unava ilable Allergies No known active allergies Medications cyclobenzaprine (FLEXERIL) 10 MG tablet Take 1 tablet (10 mg total) by mouth 3 (three) times daily as needed for Muscle spasms (pain).. 15 tablet 01/05/2017 Active ibuprofen (ADVIL,MOTRIN) 600 MG tablet Take 1 tablet (600 mg total) by mouth every 8 (eight) hours as needed (pain).. 20 tablet 01/05/2017 Active Social History Tobacco Use Types Packs/Day Years Used Date Smoking Tobacco: Never Alcohol Use Standard Drinks/Week Comments No 0 (1 standard drink = 0.6 oz pur e alcohol) Comments Unknown Sex and Gender Information Value Date Recorded Sex Assigned at Not on file Legal Sex Female 7:22 PM EDT Gender Identity Not on file Sexual Orientation Not on file Last Filed Vital Signs Vital Sign Reading Time Taken Comments Blood Pressure 110/65 01/05/2017 12:44 AM EDT Pulse 71 01/05/2017 12:44 AM EDT Temperature 37.1 ??C (98.8 ??F) 01/04/2017 8:31 PM ED T Respiratory Rate 18 01/05/2017 12:44 AM EDT Oxygen Saturation 99% 01/05/2017 12:44 AM EDT Inhaled Oxygen Concentration - - Weight - - Height - - Body Mass Index - - Plan of Treatment Health Maintenance Due Date Last Done Comments HIV screening 1988 Hepatitis C screening 1993 Tetanus adult (Td q 10,TDAP once) 1995 Cervical cancer screening 1996 Breast cancer screening 2015 Lipid disorder screening 2015 Colon cancer screening, Colonoscopy 2020 Diabetes screening 2020 Influenza vaccine 02/02/2024 Covid-19 vaccine series ( - 2023-25 season) 2024 RSV Discussion (1 - 1-dose 7 5+ series) 2050 Meningococcal Vaccine Aged Out No harmony kiki eligible based on patient's age to complete this topic Pneumococcal Vaccine (2 - 49 years) Aged Out No longer eligible based on patient's age to complete this topic Insurance [id number] MEDICAID [id number] [id number] [id number] MEDICAID [id number] MEDICAID [id number] MEDICAID [id number] MEDICAID [id number] MEDICAID Care Teams Ore Charger Relationship Specialty Start Date End Date Pcp, Does Not Have A PCP - General 01/04/17
--- OUTSIDE RECORDS SUMMARY | 2024-09-07 11:32 | XMS_ITS | Encounter Summary ---
Author Organization [employer] [facility] Address [address] 7[address] [place] [address] Care Team Providers Care Fire Medic Name Role Phone Unavailable Primary Care Provider Unavailabl e Reason for Visit * Reason Onset Date Comments appt 09/26/2023 Encounter Details Date Type Department Care Team (Late st Contact Info) Description 09/26/2023 Telephone [facility]ULT DENTAL [address] [place] [address] Sanjay Godoy, ESTIVEN [address] [place] [address] appt Social History Tobacco Use Types Packs/Day Years Used Date Smoking Tobacco: Every Day Cigarettes Alcohol Use Standard Drinks/Week Comments Defer 0 (1 standard drink = 0.6 oz pur e alcohol) Comments Unknown Sex and Gender Information Value Date Recorded Sex Assigned at Female 05/03/2022 10:16 AM EDT Legal Sex Female 10:16 AM EDT Gender Identity Female 05/03/2022 10:16 AM EDT Sexual Orientation Straight 05/03/2022 10 :16 AM EDT documented as of this encounter Miscellaneous Notes * Telephone Encounter - Yolanda Duran - 09/26/2023 10:21 AM EDT Patient calling in to check status of appt to check her front crowns. Appt active requested on 05/2023. documented in this encounter Plan of Treatment Not on file documented as of this encounter Visit Diagnoses Not on filedocumented in this encounter
--- OUTSIDE RECORDS SUMMARY | 2024-09-07 11:32 | XMS_ITS | Clinical Summary ---
Author Organization [employer] [facility] Address [address] [place] [address] 7t [place] [address] Care Team Providers Care Drawing Tender Name Role Phone Unavailable Primary Care Provider Unavailabl e Allergies No known active allergies Medications gabapentin (Neurontin) 300 MG capsule Take 300 mg by mouth 3 times daily. Active oxyCODONE (Oxy-IR) 5 MG immediate release capsule Take 1 capsule by mouth every 6 (six) hours. Active ALBUTEROL IN Inhale. Active Sodium Fluoride (PreviDent 5000 Booster Plus) 1.1 % paste Apply 1 application to teeth 2 times daily. 112 g 3 3 Active oxyCODONE-aceta minophen (Percocet) 5-325 MG tablet TOME JEREMY TABLETA CUATRO VECES AL D A 3 Active OxyCONTIN 10 MG 12 hr tablet TOME JEREMY TABLETA TODOS LOS D AND 1 EXTRA TABLET NEEDED 3 Active Active Problems No known active problems Social History Tobacco Use Types Packs/Day Years Used Date Smoking Tobacco: Every Day Cigarettes Tobacco Cessation:Ready to Q uit: Not Asked; Counseling Given: Not Answered Alcohol Use Standard Drinks/Week Comments Defer 0 (1 standard drink = 0.6 oz pur e alcohol) Comments Unknown Sex and Gender Information Value Date Recorded Sex Assigned at Female 05/03/2022 10:16 AM EDT Legal Sex Female 10:16 AM EDT Gender Identity Female 05/03/2022 10:16 AM EDT Sexual Orientation Straight 05/03/2022 10 :16 AM EDT Last Filed Vital Signs Vital Sign Reading Time Taken Comments Blood Pressure 120/62 12/15/2023 3:12 PM EDT Pulse 88 12/15/2023 3:12 PM EDT Temperature - - Respiratory Rate - - Oxygen Saturation - - Inhaled Oxygen Concentration - - Weight - - Height - - Body Mass Index - - Plan of Treatment Health Maintenance Due Date Last Done Comments CT Colonography 1975 Colonoscopy 1975 Colorectal Cancer Screening 1975 Depression Screening 1975 FIT DNA/Cologuard 1975 FIT 1975 FOBT 1975 HIV Screening 1975 Lipid Panel 1975 SDOH Screening 1975 Sigmoidoscopy 1975 Alcohol/Substance Use Screening 1987 Family Planning (PISQ) 1990 Hepatitis C Screening 1993 Pneumococcal Vaccine: Pediatrics (0 to 5 Years) and At-Risk Patients (6 to 49) Years) (1 of 2 - PCV) 1994 Pap Smear 1996 Cervical Cancer Screening 2005 HPV/Cotest 2005 Hepatitis B Vaccines (2 of 3 - 19+ 3-dose series) 11/22/2012 10/25/2012 Mammogram 2015 DTaP/Tdap/Td Vaccines (2 - T d or Tdap) 11/10/2022 11/10/2012 Dental Oral Exam 09/16/2023 03/17/2023, 11/29/2018 Dental Prophylaxis 11/05/2023 05/06/2023, 08/06/2019, 01/29/2019 COVID-19 Vaccine ( - 2023-2 5 season) 2024 06/04/2021, 09/18/2020, 08/28/2020 Influenza Vaccine (#1) 2024 , 07/26/2013, 07/26/2013 Dental X-Ray: Bitewings 03/18/2024 03/17/20 23, 07/16/2019, 11/29/2018 Tobacco Screening 12/14/2024 12/15/2023 Zoster Vaccines (1 of 2) 2025 Dental X-Ray: Full Mouth 03/18/2026 023, 11/29/2018 RSV Patients and Patients Aged 60 years or older (1 - 1-dose 75+ series) 2050 HIB Vaccines Aged Out No longer eligi [...] patient's age to complete this topic Meningococcal Vaccine Aged Out No harmony kiki eligible based on patient's age to complete this topic RSV under 20 months Aged Out No longe r eligible based on patient's age to complete this topic Rotavirus Vaccines Aged Out No longer eligible based on patient's age to complete this topic Procedures Procedure Name Priority Date/Time Associated Diagnosis Comments PROPHYLAXIS - ADULT Routine 05/06/2023 9 :00 AM EDT INTRAORAL - COMPLETE SERIES OF RADIOGRAPHIC IMAGES Routine 03/17/2023 11:00 AM EDT PERIODIC ORAL EVALUATION - ESTABLISHED PATIENT Routine 03/17/2023 11:00 AM EDT from Last 3 Months or Most Recently Relevant [place] [id number] [facility] MEDICAID STAND ADULT
== END 2024-09-07 10:47 | disposition home or self-care (01) ==
PROVIDERS: Visit Provider Physician Assistant
DX: S43.004A Unspecified dislocation of right shoulder joint, initial encounter (principal)
CPT/HCPCS: 99203

== ENCOUNTER → 2024-09-07 10:18 | Outpatient (BNVA) | payer MEDICAID, SELFPAY | PROVIDERS: Visit Provider Physician Assistant | DX: S43.004A Unspecified dislocation of right shoulder joint, initial encounter (principal); X58.XXXA Exposure to other specified factors, initial encounter; Y93.9 Activity, unspecified; Y92.9 Unspecified place or not applicable; Y99.9 Unspecified external cause status | CPT/HCPCS: 99202 ==

== ENCOUNTER 2024-10-19 13:30 | Outpatient (AMB) | payer MEDICAID, SELFPAY ==
--- NOTE | 2024-10-19 13:44 | A.OFFVIS_ITS ---
Vital Signs 10/19/24 13:50 Height 5 ft 4 in Weight 179 lb BMI 30.7 Handedness Right Intake Visit Reasons: OV - right shoulder dislocation, DOI 08/31/24 Intake Note: Trixie is a 49 year old right hand dominant female who presents today for a evaluation of her right shoulder dislocation, DOI 08/31/24. Patient reports she is not feeling better. She notices that her pain is worse at night. Patient is taking oxycodone for her back and it gives her mild relief for her shoulder. Patient hasn't heard from PT. Allergies buprenorphine [From Butrans] Allergy (Unknown, Verified 10/19/24 13:49) Nausea, pruritis, appetite supression morphine [From MS Contin] Allergy (Unknown, Verified 10/19/24 13:49) Nausea, rash HPI HPI OV - right shoulder dislocation, DOI 08/31/24: Details: Ms. Doris Mckinney is a 49-year-old female who presents to the office today for follow-up status post right shoulder dislocation on 08/31/2024. At her last appointment on 09/07/2024 I recommended physical therapy. Unfortunately, the patient reports that physical therapy did not reach out to her therefore she has not attended any sessions to date. She reports that she has continued right shoulder pain and difficulty with range of motion. [facility] Medical History (Updated 09/07/24 @ 10:51 by Vicky Caruso PA-C) Hx of menorrhagia Chronic sacroiliac joint pain Family history of breast cancer Osteoarthritis Neuropathy Pain in buttock Chronic low back pain Pain in lower limb Narrowing of intervertebral disc space Asthma Chronic back pain Surgical History H/O: knee surgery Family History Mother Type 2 diabetes mellitus Sister Breast cancer Social History Alcohol intake: current Alcohol intake frequency: holidays/special occasions only Patient Tobacco Use Status: Current everyday Tobacco user Cigarettes Per Day: 6 Current occupational status: employed 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 Abduction to 90 degrees. Pain with cross-body reach. 3/5 strength with empty can. Negative drop arm. NVI. Assessment & Plan Assessment & Plan (1) Dislocation of shoulder, right, closed: Code(s): S43.004A - Unspecified dislocation of right shoulder joint, initial encounter Category: Medical Plan Ms. Doris Mckinney is a 49-year-old female who presents to the office today for follow-up status post right shoulder dislocation on 08/31/2024. At her last appointment on 09/07/2024 I recommended physical therapy. Unfortunately, the patient reports that physical therapy did not reach out to her therefore she has not attended any sessions to date. She reports that she has continued right shoulder pain and difficulty with range of motion. On the office today, I reordered physical therapy for the patient and stressed the importance of attending. Not only for the management of this dislocation but prevention of future dislocations. Patient understands and accepts. I will follow up with her in 6 weeks after physical therapy, sooner if needed. Orders: Orders PT Evaluation and Treatment Today S43.004A - Unspecified dislocation of right shoulder joint, initial encounter Coding Level of Care Code Est Pt Level 3 (93494) Diagnoses Dislocation of shoulder, right, closed S43.004A
[2024-10-19 13:50] VITALS: BMI 30.7
--- OUTSIDE RECORDS SUMMARY | 2024-10-19 13:57 | XMS_ITS | Encounter Summary ---
Author Organization [facility] Address [address] 7t [place] [address] Care Team Providers Care Material Analyst Name Role Phone Unavailable Primary Care Provider [...]
--- OUTSIDE RECORDS SUMMARY | 2024-10-19 13:57 | XMS_ITS | Clinical Summary ---
Author Organization [facility] ity Address [address] [place] [address] Care Team Providers Care Internal Controls Specialist Name Role Phone Rolo Quinn MD Primary Care Provider [phone] Surgical History Surgery Date Site/Laterality Comments EYE SURGERY PROCEDURE: HISTORICAL EYE SURGERY; COMMENT: had chemica injury one year ago, had surgery done in [place] CERVICAL BIOPSY W/ LOOP ELECTRODE EXCISION 2008 PROCEDURE: [place] CONIZATION CERVIX W/WO D&C RPR ELTRD EXC [...] 01/01/2021, 12/23/2020, Additional history exists COVID-19 Vaccine ( season) 2024 Influenza Vaccine (Season Ended) 2025 07/26/2013 MMR Vaccines Aged Out 02/18/2015, 10/25/2012 [...] age to complete this topic Meningococcal B Vaccine Aged Out No l onger eligible based on patient's age to complete [...] Recently Relevant to Health Maintenance Care Teams Internal Controls Specialist Relationship Specialty Start Date End Date Rolo Quinn MD [address] [place] [phone] PCP - General 12/17/20
--- OUTSIDE RECORDS SUMMARY | 2024-10-19 13:57 | XMS_ITS | Clinical Summary ---
Author Organization [facility] Address [address] [place] [address] Care Team Providers Care Physician Relations Manager Name Role Phone Unavailable Primary Care Provider [...]
--- OUTSIDE RECORDS SUMMARY | 2024-10-19 13:57 | XMS_ITS | Clinical Summary ---
Author Organization [address] Address [address] [place] [phone] Phone Care Team Providers Care Mechanical Maintenance Worker Name Role Phone Pcp, Does Not Have [...] cancer screening, Colonoscopy 2020 Diabetes screening 2020 Covid-19 vaccine series ( - 2023-25 season) 2024 Influenza vaccine 03/04/2025 RSV Immunization (1 - 1-dose 75+ series) 2050 Meningococcal Vaccine Aged Out No harmony kiki eligible based on patient's age to complete this topic Pneumococcal Vaccine (2 - 49 years) Aged Out No longer eligible based on patient's age to complete this topic Insurance [id number] MEDICAID [id number] MEDICAID [id number] MEDICAID [id number] MEDICAID [id number] MEDICAID [id number] MEDICAID Care Teams Mechanical Maintenance Worker Relationship Specialty Start Date End Date Pcp, Does Not Have A PCP - General 01/04/17
--- OUTSIDE RECORDS SUMMARY | 2024-10-19 13:57 | XMS_ITS | Clinical Summary ---
Author Organization [employer] [facility] Address [address] [place] [address] 7t [place] [address] Care Team Providers Care Instrumentation Chemist Name Role Phone Unavailable Primary Care Provider [...] Most Recently Relevant to Health Maintenance Insurance [facility] MEDICAID STAND ADULT
--- OUTSIDE RECORDS SUMMARY | 2024-10-19 13:57 | XMS_ITS | Encounter Summary ---
Author Organization [employer] [facility] Address [address] 7t [place] [address] Care Team Providers Care Vp Of Technology Name Role Phone Unavailable Primary Care Provider Unavailabl e Reason for Visit * Reason Onset Date Comments appt 09/26/2023 Encounter Details Date Type Department Care Team (Late st Contact Info) Description 09/26/2023 Telephone [facility] ADULT DENTAL [address] [place] [address] Sanjay Godoy, ESTIVEN [address] [place] [address] appt Social History Tobacco Use Types Packs/Day [...]
== END 2024-10-19 13:54 | disposition home or self-care (01) ==
LOC: HO.HOS 13:30
PROVIDERS: Visit Provider Physician Assistant
DX: S43.004A Unspecified dislocation of right shoulder joint, initial encounter (principal)
CPT/HCPCS: 99213

== ENCOUNTER → 2024-10-19 13:30 | Outpatient (BNVA) | payer MEDICAID, SELFPAY | PROVIDERS: Visit Provider Physician Assistant | DX: S43.004A Unspecified dislocation of right shoulder joint, initial encounter (principal); X58.XXXA Exposure to other specified factors, initial encounter; Y93.9 Activity, unspecified; Y92.9 Unspecified place or not applicable; Y99.9 Unspecified external cause status | CPT/HCPCS: 99212 ==

== ENCOUNTER 2024-11-27 14:06 | Outpatient (RCR) | payer MEDICAID, SELFPAY ==
--- NOTE | 2024-11-08 15:29 | MHC.PT.EP ---
[facility] [place] Office [place] [facility] [place] [facility] [address] Chrissy Bullard [address] [phone] F: [phone] F: [phone] F: [phone] F: [phone] Physical Therapy Plan of Care Date of Evaluation: 11/08/24 Date of Surgery: Diagnosis: TRAUMATIC ANTERIOR DISLOCATION Rt SHOULDER, CLOSED Assessment: 49 YO FEMALE REF TO PT S/P TRAUMATIC ANT GH DISLOCATION Rt SH ON 08/31/24, RELOCATED IN ER, ORTHO CONSULT, REF TO PT. 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 Pt W DECR POSTURE, DECR AROM Rt UE, POST RC/ SCAP WEAKNESS, PAIN, GUARDING, DECR PROPRIOC Rt SH GIRDLE- LIMITED ADLs, DECR HAIR BRUSHING/ DRESSING/ LIFTING/ SLEEPING- DENIES RADIC SXS- WILL BENEFIT FROM PT TO ADDRESS THE ABOVE AND MAXIMIZE HER RETURN TO FUNCT TASKS, ESPEV]C SHE IS Rt HAND DOMINANT. Frequency and Duration: The patient will be seen 2 x WK x 5 WKS Short Term Goals: DECR Rt SH PAIN, RE-EDUC RE Jt PROTECTION IMPROVE AAROM-> AROM Rt UE Pt INDEP SELF CORRECT POSTURE EFFICIENT SCAP MM ACTIV Authorization Manager Goals: Pt INDEP HEP AND SELF SX MGMT Pt GRAD RESUME REG ADLs WFL STRENGTH/ NEUROMUSC CONTROL Rt SH COMPLEX ENHANCED DYNAMIC STABILITY IMPROVED SPADI, AT EVAL 121/130 Treatment Plan: Modalities to reduce pain, spasms and effusion. Manual therapy to restore motion and function. Therapeutic exercise to improve strength and flexibility. Neuromuscular re-education for posture and balance. Therapeutic activities to return to functional activities of daily living. Electronically signed by: ORLY ALBRECHT,PT Please sign and return to therapist. Thank you for your referral.
--- NOTE | 2025-01-16 09:46 | MHC.PT.DC ---
[facility] [place] [facility] [place] Office [place] Office [address] Chrissy Bullard [address] [phone] F: [phone] F: [phone] F: [phone] F: [phone] Physical Therapy Discharge Report Diagnosis: TRAUMATIC ANTERIOR DISLOCATION Rt SHOULDER, CLOSED Date of Surgery: Date of Evaluation: 11/08/24 Date of Discharge: 01/16/25 Treatments to Date: 3 Cancellations to Date: 1 No Shows to Date: 0 Discharge Status: Improved Function Patient Elected to Stop Visit Non-compliance Discharge Summary: LILLIE IS D/C THIS DATE FROM PT- SHE DID NOT MEET HER PT GOALS- SHE HAD DECR ATTENDANCE FOR SCHED PT APPTS AND SHE HAD POOR COMPLIANCE W HER HEP, ADDRESSING Rt SH STABILITY. SHE IS D/C THIS DATE PER THE PT DEPT ATTENDANCE POLICY. Electronically signed by: ORLY ALBRECHT,PT Please sign and return to therapist. Thank you for your referral.
== END 2025-01-16 09:48 | disposition home or self-care (01) ==
LOC: HO.PT 14:06
PROVIDERS: PCP Nurse Practitioner Primary Care; Visit Provider Physician Assistant
DX: S43.004D Unspecified dislocation of right shoulder joint, subsequent encounter (principal)
CPT/HCPCS: 97110; 97140; 97162; 97535

== ENCOUNTER 2025-02-13 10:49 | Outpatient (AMB) | payer OTHER, SELFPAY ==
--- NOTE | 2025-02-13 11:02 | MHC.OFFVIS ---
Vital Signs 02/13/25 11:03 Height 5 ft 4 in Weight 179 lb BMI 30.7 Intake Visit Reasons: Vulva Lesion check/per Vandana/DO NOT RS Grain Shoveler Required: No Information Interpreted: non-clinical & clinical Configuration Technician: Configuration Technician Present (Rocio Lancaster RACHELLE) Accompanied by: Self / Same As Patient Allergies buprenorphine (From Butrans) Allergy (Unknown, Verified 02/13/25 11:10) Nausea, pruritis, appetite supression morphine (From MS Contin) Allergy (Unknown, Verified 02/13/25 11:10) Nausea, rash HPI Comments Details: Presenting referred from Vandana Wylie CNM regarding abnormal vulvar lesions PFSH Medical History Hx of menorrhagia Chronic sacroiliac joint pain Family history of breast cancer Osteoarthritis Neuropathy Pain in buttock Chronic low back pain Pain in lower limb Narrowing of intervertebral disc space Asthma Chronic back pain Surgical History H/O: knee surgery Family History Mother Type 2 diabetes mellitus Sister Breast cancer Social History Alcohol intake: current Alcohol intake frequency: holidays/special occasions only Patient Tobacco Use Status: Current everyday Tobacco user Cigarettes Per Day: 6 Current occupational status: employed 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,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 Reproductive History Menstrual Age of Menarche: 12 Review of Systems Const All systems reviewed & are unremarkable except as noted in HPI and below Physical Exam Vital Signs: BMI result Body Mass Index 30.7 General: Yes no CVA tenderness External Female Exam: No normal external appearance (Periclitoral lesion, bilateral labia majora leukoplakia) and normal appearance of the urethra Speculum Exam - Vagina: normal appearance of the vagina, normal palpation, no lesions and no masses Speculum Exam - Cervix: normal appearance of the cervix, normal palpation, no lesions, no masses and nontender Bimanual exam- vagina & uterus: normal bimanual exam, normal palpation, uterine size normal, normal palpation, uterine shape normal, No Cervical tenderness present and non-tender Bimanual Exam- Adnexa, other: normal adnexae Back/Spine/Pelvis Back: no CVA tenderness Results AMB Test Urine AMB Test Urine Negative Last Edit by Rocio Lancaster CMA on 02/13/25 11:11 Results Reviewed Results Reviewed: Laboratory Last Values Tst Clinic Negative 02/13/25 11:10 Assessment & Plan Assessment & Plan (1) Vulvar lesion: Comment: Periclitoral lesion Bilateral per labia majora leukoplakia Code(s): N90.89 - Other specified noninflammatory disorders of vulva and perineum Category: Medical Plan: Discussed with the patient the finding on pelvic exam showing a periclitoral lesion, recommended excisional biopsy and bilateral upper labia majora leukoplakia recommended biopsies to rule out HARRISON. Instructions given the patient to schedule an appointment within 2 weeks. All questions answered, the patient verbalized understanding Orders: Orders AMB HCG Urine Test Today Z32.02 - Encounter for test, result negative Coding Level of Care Code Est Pt Level 3 (10157) Diagnoses Vulvar lesion N90.89
[2025-02-13 11:03] VITALS: BMI 30.7
--- OUTSIDE RECORDS SUMMARY | 2025-02-13 11:41 | XMS_ITS | Clinical Summary ---
Author Organization [facility] ity Address [address] [place] [address] Care Team Providers Care Green Pipefitter Name Role Phone Rolo Quinn MD Primary Care Provider [phone] Surgical History Surgery Date Site/Laterality Comments EYE SURGERY PROCEDURE: HISTORICAL EYE SURGERY; COMMENT: had chemica injury one year ago, had surgery done in [place] CERVICAL BIOPSY W/ LOOP ELECTRODE EXCISION 2008 PROCEDURE: [place] CONIZATION CERVIX W/WO D&C RPR ELTRD EXC [...] 5 Years) and At-Risk Patients (6 to 49 Years) (1 of 2 - PCV) 1994 Cervical Cancer Screening: Pap Smear 1996 Hepatitis B Vaccines (2 of 3 - 19+ 3-dose series) 11/22/2012 10/25/2012 Colorectal Cancer Screening: Colonoscopy 06/01/2022 HIV Screening 06/01/2022 Hepatitis C Screening 06/01/2022 Social Influencers of Health Screening 06/01/2022 DTaP,Tdap,and Td Vaccines (2 - Td or Tdap) 11/10/2022 11/10/2012 Breast Cancer Screening 01/08/2023 01/09/20 21, 01/01/2021, 12/23/2020, Additional history exists COVID-19 Vaccine () 03/04/2024 Depression Screening 07/04/2024 Influenza Vaccine (#1) 2025 07/26/2013 MMR Vaccines Aged Out 02/18/2015, [...] Recently Relevant to Health Maintenance Care Teams Green Pipefitter Relationship Specialty Start Date End Date Rolo Quinn MD [address] [place] [phone] PCP - General 12/17/20
--- OUTSIDE RECORDS SUMMARY | 2025-02-13 11:43 | XMS_ITS | Clinical Summary ---
Author Organization [facility] Address [address] [place] [address] Care Team Providers Care Protein Purification Scientist Name Role Phone Unavailable Primary Care Provider [...] 77 04/13/2021 2:10 PM EDT Temperature 36.9 C (98.4 F) 04/13/2021 2:00 PM EDT Respiratory Rate 16 04/13/2021 2:10 PM EDT [...] or Tdap) 11/10/2022 013 Influenza Vaccine (#1) 2025 07/26/2013 Pneumococcal Vaccine Aged Out No long er eligible based on patient's age to complete this topic RSV Ped < 20 months Aged Out No longe r eligible based on patient's age to complete this topic
--- OUTSIDE RECORDS SUMMARY | 2025-02-13 11:43 | XMS_ITS | Encounter Summary ---
Author Organization [employer] [facility] Address [address]t [place] [address] Care Team Providers Care Sr. Manager Name Role Phone Unavailable Primary Care Provider Unavailabl e Encounter Details Date Type Department Care Team (Latest Contact Info) Description 01/29/2019 Abstract [facility] CONVERSIONS Dental, Provider, DDS Social History Tobacco [...]
== END 2025-02-13 11:21 | disposition home or self-care (01) ==
LOC: HO.HWS 10:50
PROVIDERS: Visit Provider Obstetrics & Gynecology
DX: N90.89 Other specified noninflammatory disorders of vulva and perineum (principal); Z32.02 Encounter for pregnancy test, result negative
CPT/HCPCS: 99213

== ENCOUNTER → 2025-02-13 10:49 | Outpatient (BNVA) | payer OTHER, SELFPAY | PROVIDERS: Visit Provider Obstetrics & Gynecology | DX: Z32.02 Encounter for pregnancy test, result negative (principal) | CPT/HCPCS: 81025 ==

== ENCOUNTER 2025-04-29 09:22 | Outpatient (AMB) | payer OTHER, SELFPAY ==
[2025-04-29 09:39] VITALS: BP 110/70; BMI 30.7
--- NOTE | 2025-04-29 09:39 | MHC.OFFVIS ---
Vital Signs 04/29/25 09:39 Height 5 ft 4 in Weight 179 lb BMI 30.7 BP 110/70 Intake Visit Reasons: vulva biopsy Rotary Machine Operator Required: No Information Interpreted: non-clinical & clinical Agricultural Extension Specialist: Agricultural Extension Specialist Present (Rocio Lancaster RACHELLE) Accompanied by: Self / Same As Patient Allergies buprenorphine (From Butrans) Allergy (Unknown, Verified 04/29/25 09:40) Nausea, pruritis, appetite supression morphine (From MS Contin) Allergy (Unknown, Verified 04/29/25 09:40) Nausea, rash Is last menstrual period known: No (ablation) HPI Comments Details: Presenting for vulvar biopsy [facility] Medical History Hx of menorrhagia Chronic sacroiliac joint pain Family history of breast cancer Osteoarthritis Neuropathy Pain in buttock Chronic low back pain Pain in lower limb Narrowing of intervertebral disc space Asthma Chronic back pain Surgical History H/O: knee surgery Family History Mother Type 2 diabetes mellitus Sister Breast cancer Social History Alcohol intake: current Alcohol intake frequency: holidays/special occasions only Patient Tobacco Use Status: Current everyday Tobacco user Cigarettes Per Day: 6 Current occupational status: employed 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,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 Reproductive History Menstrual Age of Menarche: 12 Review of Systems Const All systems reviewed & are unremarkable except as noted in HPI and below Physical Exam Vital Signs: Last Vital Signs BP 110/70 04/29/25 09:39 BMI result Body Mass Index 30.7 General: Yes no CVA tenderness External Female Exam: No normal external appearance (Posterior fourchette & R upper labia majora leukoplakia&periclitoral lesion) and normal appearance of the urethra Speculum Exam - Vagina: normal appearance of the vagina, normal palpation, no lesions and no masses Speculum Exam - Cervix: normal appearance of the cervix, normal palpation, no lesions, no masses and nontender Bimanual exam- vagina & uterus: normal bimanual exam, normal palpation, uterine size normal, normal palpation, uterine shape normal, No Cervical tenderness present and non-tender Bimanual Exam- Adnexa, other: normal adnexae Back/Spine/Pelvis Back: no CVA tenderness Office Procedures 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 10 cc cc of lidocaine was used for anesthesia at the left Posterior fourchette and right upper labia majora leukoplakia, and periclitoral le area ; using punch biopsy the leukoplakia of the posterior fourchette in the right upper labia majora leukoplakia as were biopsies then using scissors and pickup the periclitoral lesion was excised. Pressure was used for hemostasis. The patient tolerated the procedure well. Discharge Instructions: The patient was instructed to schedule an appointment in 2 weeks for follow-up and to call if temp>100.4, area of the biopsy redness or pain, nausea/vomiting. This note was generated with a voice recognition program. Some errors may have been overlooked during the review of this note. Sometimes these errors may affect the content or meaning of a given sentence. 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 Code(s): N90.89 - Other specified noninflammatory disorders of vulva and perineum Category: Medical Plan: 2 biopsies done from the leukoplakia area of the posterior fourchette in the right labia majora with excisional biopsy of the periclitoral lesion, see procedure note Orders: Orders AMB HCG Urine Test Today Z32.02 - Encounter for test, result negative AMB TENNIS PLAYER Biopsy Today N90.89 - Other specified noninflammatory disorders of vulva and perineum Coding Level of Care Code Procedure Only Diagnoses Vulvar lesion N90.89 CPT Codes TENNIS PLAYER Biopsy - CPT: 59844-Xlbjak of Vulva/Perineum ([id number]) TENNIS PLAYER Biopsy - CPT: 67707-Zmusrw of Vulva/Perineum, additional site ([id number])
--- OUTSIDE RECORDS SUMMARY | 2025-04-29 10:25 | XMS_ITS | Clinical Summary ---
Author Organization [facility] Address [address] [place] [address] Care Team Providers Care Military Source Operations Specialist Name Role Phone Unavailable Primary Care Provider [...]
--- OUTSIDE RECORDS SUMMARY | 2025-04-29 10:25 | XMS_ITS | Clinical Summary ---
Author Organization [employer] [facility] Address [address] [place] [address] Care Team Providers Care Pattern Cleaner Name Role Phone Unavailable Primary Care Provider [...] FIT 1975 FOBT 1975 HIV Screening 1975 SDOH Screening 1975 Sigmoidoscopy 1975 Disability Screening 1975 Alcohol/Substance Use Screening 1987 Family Planning (PISQ) 1990 Hepatitis C Screening 1993 Pneumococcal Vaccine: Pediatrics (0 to 5 Years) and At-Risk Patients (6 to 49) Years (1 of 2 - PCV) 1994 Pap Smear 1996 Cervical Cancer Screening 2005 HPV/Cotest 2005 Hepatitis B Vaccines (2 of 3 - 19+ 3-dose series) 11/22/2012 10/25/2012 Mammogram 2015 DTaP/Tdap/Td Vaccines (2 - T d or Tdap) 11/10/2022 11/10/2012 Dental Oral Exam 09/16/2023 03/17/2023, 11/29/2018 Dental Prophylaxis 11/05/2023 05/06/2023, 08/06/2019, 01/29/2019 Dental X-Ray: Bitewings 03/18/2024 03/17/20 23, 07/16/2019, 11/29/2018 Tobacco Screening 12/14/2024 12/15/2023 COVID-19 Vaccine (4 - 2024-2 6 season) 2025 06/04/2021, 09/18/2020, 08/28/2020 Influenza Vaccine (#1) 2025 , 07/26/2013, 07/26/2013 Zoster Vaccines (1 of 2) 2025 Dental [...] Most Recently Relevant to Health Maintenance [facility] ADULT
--- OUTSIDE RECORDS SUMMARY | 2025-04-29 10:25 | XMS_ITS | Encounter Summary ---
Author Organization [facility] Address [address] [place] [address] Care Team Providers Care Funeral Car Chauffeur Name Role Phone Unavailable Primary Care Provider [...]
--- OUTSIDE RECORDS SUMMARY | 2025-04-29 10:25 | XMS_ITS | Encounter Summary ---
Author Organization [facility] Address [address] [place] [address] Care Team Providers Care Systems Auditor Name Role Phone Unavailable Primary Care Provider Unavailabl e Reason for Visit * Reason Onset Date Comments appt 09/26/2023 Encounter Details Date Type Department Care Team (Late st Contact Info) Description 09/26/2023 Telephone [facility] [address] [place] [address] Sanjay Godoy, DMD [address] [place] [address] appt Social History Tobacco Use Types Packs/Day [...]
--- OUTSIDE RECORDS SUMMARY | 2025-04-29 10:25 | XMS_ITS | Clinical Summary ---
Author Organization [facility] Address [address] [place] [address] Care Team Providers Care Plant Accountant Name Role Phone Rolo Quinn MD Primary Care Provider [phone] Surgical History Surgery Date Site/Laterality Comments EYE SURGERY PROCEDURE: HISTORICAL EYE SURGERY; COMMENT: had chemica injury one year ago, had surgery done in [place] CERVICAL BIOPSY W/ LOOP ELECTRODE EXCISION 2008 PROCEDURE: [place] CONIZATION CERVIX W/WO D&C RPR ELTRD EXC [...] Health Maintenance Due Date Last Done Comments Colorectal Cancer Screening: Colonoscopy 1975 Pneumococcal Vaccine: Pediatrics (0 to 5 Years) and At-Risk Patients (6 to 49 Years) (1 of 2 - PCV) 1994 Cervical Cancer Screening: Pap Smear 1996 Hepatitis B Vaccines (2 of 3 - 19+ 3-dose series) 11/22/2012 10/25/2012 HIV Screening 06/01/2022 Hepatitis C Screening 06/01/2022 Social Influencers of Health Screening 06/01/2022 DTaP,Tdap,and Td Vaccines (2 - Td or Tdap) 11/10/2022 11/10/2012 Breast Cancer Screening 01/08/2023 01/09/20 21, 01/01/2021, 12/23/2020, Additional history exists Depression Screening 07/04/2024 COVID-19 Vaccine ( - season) 2025 Influenza Vaccine (#1) 2025 07/26/2013 RSV Immunization Adult Patients (1 - 1-dose 75+ series) 2050 MMR Vaccines Aged Out 02/18/2015, 10/25/2012 No [...] Recently Relevant to Health Maintenance Care Teams Plant Accountant Relationship Specialty Start Date End Date Rolo Quinn MD [address] [place] [phone] PCP - General 12/17/20
--- OUTSIDE RECORDS SUMMARY | 2025-04-29 10:25 | XMS_ITS | Clinical Summary ---
Author Organization [address] Address [address] [place] [phone] Phone Care Team Providers Care Thread Separator Name Role Phone Pcp, Does Not Have [...] 71 01/05/2017 12:44 AM EDT Temperature 37.1 C (98.8 F) 01/04/2017 8:31 PM EDT Respiratory Rate 18 01/05/2017 12:44 AM EDT [...] Colonoscopy 2020 Diabetes screening 2020 Influenza vaccine 02/01/2025 Covid-19 vaccine series ( - 2024- season) 2025 RSV Immunization (1 - 1-dose 75+ series) 2050 Meningococcal B Vaccine Aged Out No l onger eligible based on patient's age to complete this topic Meningococcal Vaccine Aged Out No harmony kiki eligible based on patient's age to complete this topic Pneumococcal Vaccine (2 - 49 years) Aged Out No longer eligible based on patient's age to complete this topic Insurance [id number] MEDICAID [id number] MEDICAID [id number] MEDICAID [id number] MEDICAID [id number] MEDICAID [id number] MEDICAID [id number] MEDICAID Care Teams Thread Separator Relationship Specialty Start Date End Date Pcp, Does Not Have A PCP - General 01/04/17
== END 2025-04-29 10:22 | disposition home or self-care (01) ==
LOC: HO.HWS 09:23
PROVIDERS: Visit Provider Obstetrics & Gynecology
DX: N90.89 Other specified noninflammatory disorders of vulva and perineum (principal); Z32.02 Encounter for pregnancy test, result negative
CPT/HCPCS: 56605; 56606

== ENCOUNTER 2025-04-29 09:22 | Outpatient (REF) | payer OTHER, SELFPAY | END 2025-04-29 09:23 | disposition home or self-care (01) | LOC: HO.LNP 09:22 | PROVIDERS: Visit Provider Obstetrics & Gynecology | DX: N90.89 Other specified noninflammatory disorders of vulva and perineum (principal); Z32.02 Encounter for pregnancy test, result negative | CPT/HCPCS: 56605; 56606; 81025; 88305; 88313 ==

== ENCOUNTER 2025-05-20 10:04 | Outpatient (AMB) | payer OTHER, SELFPAY ==
--- NOTE | 2025-05-20 10:05 | A.OFFVIS_ITS ---
Vital Signs 05/20/25 10:07 Height 5 ft 4 in Weight 179 lb BMI 30.7 Intake Visit Reasons: Biopsy results Wood Machine Carver Required: No Information Interpreted: non-clinical & clinical Accompanied by: Self / Same As Patient Allergies buprenorphine (From Butrans) Allergy (Unknown, Verified 05/20/25 10:07) Nausea, pruritis, appetite supression morphine (From MS Contin) Allergy (Unknown, Verified 05/20/25 10:07) Nausea, rash HPI Comments Details: Presenting for follow-up regarding vulvar biopsies. Doing well with no complaints. The pathology showed the following: A. Vulva, right upper labia majora, biopsy: Mild changes consistent with lichen sclerosus, and dermal melanophages. B. Vulva, posterior fourchette, biopsy: Lichen sclerosus. C. Vulva, periclitoral lesion, biopsy: Condyloma acuminatum [facility] Medical History Hx of menorrhagia Chronic sacroiliac joint pain Family history of breast cancer Osteoarthritis Neuropathy Pain in buttock Chronic low back pain Pain in lower limb Narrowing of intervertebral disc space Asthma Chronic back pain Surgical History H/O: knee surgery Family History Mother Type 2 diabetes mellitus Sister Breast cancer Social History Alcohol intake: current Alcohol intake frequency: holidays/special occasions only Patient Tobacco Use Status: Current everyday Tobacco user Cigarettes Per Day: 6 Current occupational status: employed 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,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 Reproductive History Menstrual Age of Menarche: 12 Review of Systems Const All systems reviewed & are unremarkable except as noted in HPI and below Reports as per HPI and Reports no additional complaints GI Reports no additional complaints Reports no additional complaints Physical Exam Vital Signs: BMI result Body Mass Index 30.7 Assessment & Plan Assessment & Plan (1) Condyloma acuminata: Code(s): A63.0 - Anogenital (venereal) warts Category: Medical Plan: Discussed with the patient the findings on physical exam, treatment options including cream application to the affected area, excision, cryotherapy or laser, will start with Aldara cream . Since there is no additional lesions, instructions given the patient to call if new lesions appear. All questions answered, the patient verbalized understanding (2) Lichen sclerosus: Code(s): L90.0 - Lichen sclerosus et atrophicus Category: Medical Plan: Discussed with the patient the pathology results showing lichen sclerosis. Explained to the patient that Lichen sclerosus refers to a benign, chronic, progressive dermatologic condition characterized by marked inflammation, epithelial thinning accompanied by pruritus and pain. In addition, discussed with the patient that there is a small increased risk of squamous cell cancer of the vulva in patients with lichen sclerosus. Adequate treatment of the disease seems to be associated with a reduced risk of development of neoplasia. Instructed the patient to schedule an appointment to examine the affected area, with possible biopsy of suspicious lesions, in addition explained to the patient that she should look at the skin of the affected area and touch with fingertips monthly to search for thickened lumps or sores that do not heal & to report such findings for inspection & possible biopsy to rule out vulvar cancer Will prescribe Clobetasol propionate 0.05% ointment to be applied twice a day for 2 weeks, followed by maintenance therapy two to three times per week . Medications: New clobetasol 0.05% Then maintenance therapy for 2-3 times per week 1 appl topical BID 45 grams 1 RF 2 weeks Coding Level of Care Code Est Pt Level 3 (41862) Diagnoses Condyloma acuminata A63.0 Lichen sclerosus L90.0
[2025-05-20 10:07] VITALS: BMI 30.7
--- OUTSIDE RECORDS SUMMARY | 2025-05-20 20:54 | XMS_ITS | Clinical Summary ---
Author Organization [facility] Address [address] [place] [address] Care Team Providers Care Nurses' Registry Director Name Role Phone Unavailable Primary Care Provider [...]
--- OUTSIDE RECORDS SUMMARY | 2025-05-20 20:54 | XMS_ITS | Clinical Summary ---
Author Organization [address] Address [address] [place] [phone] Phone Care Team Providers Care Clinical Geneticist Name Role Phone Pcp, Does Not Have [...] patient's age to complete this topic Insurance EUD-OC-EHEHN MEDICAID [id number] MEDICAID [id number] MEDICAID [id number] MEDICAID [id number] MEDICAID [id number] MEDICAID [id number] MEDICAID Care Teams Clinical Geneticist Relationship Specialty Start Date End Date Pcp, Does Not Have A PCP - General 01/04/17
--- OUTSIDE RECORDS SUMMARY | 2025-05-20 20:54 | XMS_ITS | Clinical Summary ---
Author Organization [facility] it[facility] Address [address] [place] [address] Care Team Providers Care Clay Mine Cutting Machine Operator Name Role Phone Rolo Quinn MD Primary Care Provider [phone] Surgical History Surgery Date Site/Laterality Comments EYE SURGERY PROCEDURE: HISTORICAL EYE SURGERY; COMMENT: had chemica injury one year ago, had surgery done in [place] CERVICAL BIOPSY W/ LOOP ELECTRODE EXCISION 2008 PROCEDURE: [place] CONIZATION CERVIX W/WO D&C RPR ELTRD EXC [...] Depression Screening 07/04/2024 COVID-19 Vaccine ( - 2024- season) 2025 Influenza Vaccine (#1) 2025 07/26/2013 [...] Recently Relevant to Health Maintenance Care Teams Clay [place] Cutting Machine Operator Relationship Specialty Start Date End Date Rolo Quinn MD [address] [place] [phone] PCP - General 12/17/20
== END 2025-05-20 10:26 | disposition home or self-care (01) ==
LOC: HO.HWS 10:04
PROVIDERS: Visit Provider Obstetrics & Gynecology
DX: A63.0 Anogenital (venereal) warts (principal); L90.0 Lichen sclerosus et atrophicus
CPT/HCPCS: 99213

== ENCOUNTER → 2025-05-20 10:04 | Outpatient (BNVA) | payer OTHER, SELFPAY | PROVIDERS: Visit Provider Obstetrics & Gynecology | DX: Z71.2 Person consulting for explanation of examination or test findings (principal); A63.0 Anogenital (venereal) warts; L90.0 Lichen sclerosus et atrophicus | CPT/HCPCS: 99212 ==

== ENCOUNTER 2025-05-22 11:00 | Outpatient (AMB) | payer OTHER, SELFPAY ==
--- NOTE | 2025-05-22 11:03 | A.OFFPC_ITS ---
Vital Signs 05/22/25 11:06 Height 5 ft 3.39 in Weight 161 lb 8 oz BMI 28.3 BP 130/76 Blood Pressure Location Lt brachial Position Sitting Pulse 78 Pulse Source Pulse Oximeter Temp 97.1 F Temp Source Temporal Artery Scan Pulse Oximetry (%) 98 Oxygen Delivery Method Room Air Intake Visit Reasons: NEW PATIENT AND NEEDS REFILLS Intake Note: Patient is a new patient here to establish care for Asthma, Chronic back pain, Anxiety. Transferring care from [facility]. Medical records have been requested and have not received. Regional Trainer Required: No Marketing Associate: Not Required per policy Accompanied by: Self / Same As Patient Allergies buprenorphine (From [facility]) Allergy (Unknown, Verified 05/22/25 11:05) Nausea, pruritis, appetite supression morphine (From [facility] Contin) Allergy (Unknown, Verified 05/22/25 11:05) Nausea, rash Medication List - Last Reconciled 05/22/25 by Cynthia Castillo MD albuterol sulfate 90 mcg/actuation 2 puffs inhalation Q4-6H PRN clobetasol 0.05% 1 appl topical BID 2 weeks cyclobenzaprine 10 mg PO BEDTIME PRN estradiol 1 patch transdermal 2XW fluoride (sodium) 1.1% PO fluticasone propionate 110 mcg/actuation 1 puff inhalation BID gabapentin 900 mg PO TID meclizine 25 mg PO TID meloxicam 15 mg PO DAILY naloxone 4 mg/actuation intranasal oxycodone ER (OxyContin) 10 mg PO BEDTIME PRN oxycodone-acetaminophen 10-325 mg 1 tab PO QID PRN progesterone micronized 200 mg PO QPM Tobacco use date assessed: 05/22/25 Dental Screening Dental Screen Date: 05/22/25 Did you have a dental visit in the last 12 months?: No Did you have a dental problem in the last 6 months where you did not have access to dental care?: No Was dental information given to patient?: Patient has dentist HPI HPI Comments History of Present Illness Details The patient is a 49-year-old female presenting to establish care for management of chronic pain and medication refills after her insurance changed. She has a history of chronic low back pain for many years, which she reports is present all day. The back pain is located in the lower back and radiates down her legs. She has been diagnosed with arthritis in her back and has tried physical therapy and acupuncture without success. She was seen by a surgeon who discussed a surgical option, but she declined it because there was no guarantee of improvement. Her current pain medication regimen includes OxyContin 10 mg, which she takes at night for sleep but has been without for a month and a half due to insurance issues, and oxycodone 10 mg taken four times daily. The oxycodone dose was increased from 5 mg to 10 mg about a year ago as the lower dose was no longer effective. She reports her pain is worse and sleep is difficult without the OxyContin. She also takes gabapentin 900 mg three times daily and meloxicam. Her past medical history is also significant for asthma, for which she uses an albuterol inhaler. I ahd an extensive discussion with the patient about the need to reduce her current regimen to Oxycontin 10 mg at bedtime, Oxycodone 10 mg BID during the day and to reduce her Gabapentin to half her current dose. The patient was not agreable to the plan. She will consider other PCP at this time. To note the patient did not reveal any drug seeking behavior, and she had few precribers, however her prior dose is not appropriate from my standpoint. I explained the situation to the patient and she will consider going back to her prior PCP. [facility] Medical History (Updated 05/22/25 @ 13:22 by Cynthia Castillo MD) Hx of menorrhagia Chronic sacroiliac joint pain Family history of breast cancer Osteoarthritis Neuropathy Pain in buttock Chronic low back pain Pain in lower limb Narrowing of intervertebral disc space Asthma Chronic back pain Surgical History H/O: knee surgery Family History (Updated 05/22/25 @ 11:04 by RACHELLE Bal) Mother Type 2 diabetes mellitus Sister Breast cancer Social History (Updated 05/22/25 @ 11:23 by RACHELLE Bal) Housing: House Alcohol intake: current Alcohol intake frequency: does not drink Patient Tobacco Use Status: Current someday Tobacco user Tobacco use type: Cigarette Cigarette Packs Per Day: 0.5 Cigarettes Per Day: 4 e-Cigarette/Vaping Use: Never Used Second Hand Smoke Exposure: Yes service: No Current occupational status: employed 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 1. Little interest or pleasure in doing things: several days 2. Feeling down, depressed, or hopeless: nearly every day 3. Trouble falling or staying asleep, or sleeping too much: several days 4. Feeling tired or having little energy: several days 5. Poor appetite or overeating: not at all 6. Feeling bad about yourself - or that you are a failure or have let yourself or your family down: not at all 7. Trouble concentrating on things, such as reading the newspaper or watching television: not at all 8. Moving or speaking so slowly that other people could have noticed. Or the opposite - being so fidgety or restless that you have been moving around a lot more than usual: several days 9. Thoughts that you would be better off or of hurting yourself in some way: not at all Total score: 7 Depression Screening Interpretation: Positive Depression Screening Done: Yes Source: Developed by Drs. Hayden Wilkes, Mariama Mohamud, Edson Knapp and colleagues, with an educational zeynep from [employer]. Thrive Questionnaire Date Thrive assessed: 05/22/25 I am a: Patient What is your living situation today?: I have a steady place to live Within the past 12 months, did the food you bought not last and you didn't have the money to get more?: I choose not to answer this question Within the past 12 months, did you worry whether your food would run out before you got money to buy more?: I choose not to answer this question Do you have trouble paying for medicines?: I choose not to answer this question Do you have trouble getting transportation to medical appointments?: No Do you have trouble paying your heating and electricity bill?: No Do you have trouble taking care of your child, family member or friend?: No Do you have trouble with day-to-day activities such as bathing, preparing meals, shopping, managing finances, etc.?: No Are you currently unemployed and looking for a job?: No Are you interested in more education?: No Please select the resources that you would like help with: None Currently or been in a relationship where the following occur: No concerns reported THRIVE Score: 0 AUDIT C Alcohol Use Questionnaire (AUDIT-C) 1. How often do you have a drink containing alcohol?: Monthly or less 2. How many drinks containing alcohol do you have on a typical day when you are drinking?: 1 or 2 3. How often do you have six or more drinks on one occasion?: Never Total Score: 1 MARIO-7 AMB Questionnaire MARIO-7 Date MARIO - 7 assessed: 05/22/25 Feeling nervous, anxious, or on edge: 1 = Several days Not being able to stop or control worryin = Not at all Worrying too much about different things: 0 = Not at all Trouble relaxin = Several days Being so restless that it is hard to sit still: 1 = Several days Becoming easily annoyed or irritable: 0 = Not at all Feeling afraid as if something awful might happen: 0 = Not at all Total MARIO-7 score (0-4 normal; 5-9 mild; 10-14 moderate; 15-21 severe): 3 Source: Developed by Drs. Hayden Wilkes, Mariama Mohamud, Edson Knapp and colleagues, with an educational zeynep from [employer]. Review of Systems Const Details: As per HPI. Physical exam (Primary Care) Vital Signs: Last Vital Signs Temp 97.1 F 05/22/25 11:06 Pulse 78 05/22/25 11:06 BP 130/76 05/22/25 11:06 Pulse Ox 98 05/22/25 11:06 Oxygen Delivery Method Room Air 05/22/25 11:06 BMI result Body Mass Index 28.3 Tobacco/Smoking Status: Tobacco use Status Tobacco use date assessed 05/22/25 05/22/25 11:06 Patient Tobacco Use Status Current someday Tobacco 05/22/25 11:24 Tobacco use type Cigarette 05/22/25 11:23 e-Cigarette/Vaping Use Never Used 05/22/25 11:23 PHQ-9: PHQ-9 Score PHQ-9: Total score 7 05/22/25 11:06 Depression Screening Interpretation: Positive Thrive Assessment: Date of Thrive Assessment Date Thrive assessed 05/22/25 05/22/25 11:06 Currently or been in a relationship where the following occur: No concerns reported Const Other: Pertinent findings are in BOLD GENERAL APPEARANCE NAD, activity normal for age, well developed/ well nourished, no cyanosis, pallor, or diaphoresis. EYES lids/conjunctiva normal. EARS/NOSE/THROAT Mucous membranes moist, nares normal, lips/teeth normal uvula midline without oral pharyngeal erythema, exudate or swelling TMs normal bilaterally. No lymphangitis/lymphedema. HEAD/NECK normocephalic atraumatic, no facial trauma, neck is supple. RESPIRATORY respiratory effort normal, speaks in full sentences, no tripod position, no accessory muscle use. Lungs clear to auscultation without rhonchi, wheezes, rales CARDIAC Regular rate and rhythm, no edema. ABDOMINAL Soft, ND/NT. No evidence of fluid wave. No pulsatile masses on exam, rebound tenderness, Bauer sign or pain over Mcburney's point. MUSCLES/EXTREMITIES No abnormal range of motion, no swelling. SKIN Warm, pink and dry. No rashes, dermatoses, petechiae or lesions. NEUROLOGICAL Speech is clear and appropriate. Normal level of consciousness. Gait and coordination are normal. 5/5 strength in all extremities. PSYCH Normal mood and affect. Judgement/competence is appropriate Coding Level of Care Code New Pt Level 4 (98379) Diagnoses Chronic midline low back pain with bilateral sciatica M54.41; M54.42; G89.29 Back pain location: low back pain Back pain laterality: midline Sciatica presence: with sciatica Sciatica laterality: bilateral sciatica Time Spent (min) 45 Assessment & Plan Assessment & Plan (1) Chronic back pain: Code(s): M54.9 - Dorsalgia, unspecified; G89.29 - Other chronic pain Category: Medical Qualifiers: Back pain location: low back pain Back pain laterality: midline Sciatica presence: with sciatica Sciatica laterality: bilateral sciatica Qualified Code(s): M54.41 - Lumbago with sciatica, right side; M54.42 - Lumbago with sciatica, left side; G89.29 - Other chronic pain Plan: - The patient's pain is sub-optimally controlled despite a high-dose, multi-drug regimen, including opioids. - The clinical assessment is that the opioid dose should be reduced for safety. - Will attempt to obtain complete prior medical records, including imaging results, physical therapy notes, and any orthopedic surgery consult notes. - A 30-day bridge prescription for OxyContin will be provided. - The plan is to gradually taper the oxycodone dose from four times per day down to two times per day. - The plan also includes reducing the gabapentin dose by half. - A pain management contract must be signed to continue care at this clinic. - Periodic urine drug screens will be required, with the first screen to be performed as soon as possible. - The patient expressed significant resistance to tapering her medications, stating she wishes to remain on her current regimen. - The patient might look for another provider to help with pain management, which we are okay with. Plan I discussed with the patient my concern regarding her current pain regimen, which includes multiple high-dose medications, including two different opioids, yet does not fully control her pain. I explained that for her safety and well- being, the standard of care in our practice is to reduce the dose of opioids. I informed her that because we do not have complete records of her prior workup, including imaging, physical therapy notes, or surgical consultations, we cannot simply continue the same regimen prescribed by her previous doctor. I outlined a plan to provide a 30-day bridge prescription for her OxyContin, but that if she chooses to continue her care with us, we will need to taper her oxycodone and gabapentin doses. I also informed her of the requirement to sign a pain contract and undergo periodic urine drug screens. The patient expressed strong disagreement with this plan, stating that her current medication regimen is the only thing that allows her to function and that she expected to continue it without changes. I acknowledged her perspective and explained that different providers have different approaches, and it is ultimately her decision how to proceed. Time spent: 45 minutes on extensive discussion regarding opiod use, reviewing the patient's chart, and documentation. Medications: New 2 oxycodone ER (OxyContin) 10 mg PO BEDTIME PRN 30 tabs 0RF pain
[2025-05-22 11:06] VITALS: BP 130/76; PULSE 78; TEMP 36.2; O2SAT 98; BMI 28.3
--- OUTSIDE RECORDS SUMMARY | 2025-05-22 21:47 | XMS_ITS | Encounter Summary ---
Author Organization Project Playlist [facility] Address [address] [place] [address] Care Team Providers Care Career Development Coordinator Name Role Phone Unavailable Primary Care Provider [...]
--- OUTSIDE RECORDS SUMMARY | 2025-05-22 21:47 | XMS_ITS | Clinical Summary ---
Author Organization [facility] ity Address [address] [place] [address] Care Team Providers Care Net Web Application Developer Name Role Phone Rolo Quinn MD Primary Care Provider [phone] Surgical History Surgery Date Site/Laterality Comments EYE SURGERY PROCEDURE: HISTORICAL EYE SURGERY; COMMENT: had chemica injury one year ago, had surgery done in [place] CERVICAL BIOPSY W/ LOOP ELECTRODE EXCISION 2008 PROCEDURE: [place] CONIZATION CERVIX W/WO D&C RPR ELTRD EXC [...] Recently Relevant to Health Maintenance Care Teams Net Web Application Developer Relationship Specialty Start Date End Date Rolo Quinn MD [address] [place] [phone] PCP - General 12/17/20
--- OUTSIDE RECORDS SUMMARY | 2025-05-22 21:47 | XMS_ITS | Clinical Summary ---
Author Organization [address] Address [address] [place] [phone] Phone Care Team Providers Care Customer Service Officer Name Role Phone Pcp, Does Not Have [...] patient's age to complete this topic Insurance [id number] MEDICAID [id number] MEDICAID [id number] MEDICAID [id number] MEDICAID [id number] MEDICAID [id number] MEDICAID [id number] MEDICAID Care Teams Customer Service Officer Relationship Specialty Start Date End Date Pcp, Does Not Have A PCP - General 01/04/17
--- OUTSIDE RECORDS SUMMARY | 2025-05-22 21:48 | XMS_ITS | Clinical Summary ---
Author Organization [facility] Address [address] [place] [address] Care Team Providers Care Rod Cup Filler Name Role Phone Unavailable Primary Care Provider [...]
--- OUTSIDE RECORDS SUMMARY | 2025-05-22 21:48 | XMS_ITS | Clinical Summary ---
Author Organization [facility] Address [address] [place] [address] Care Team Providers Care Rn Acls Name Role Phone Unavailable Primary Care Provider [...] Most Recently Relevant to Health Maintenance [facility] STAND ADULT
--- OUTSIDE RECORDS SUMMARY | 2025-05-22 21:48 | XMS_ITS | Encounter Summary ---
Author Organization [facility] Address [address] [place] [address] Care Team Providers Care Paint Grinder Name Role Phone Unavailable Primary Care Provider Unavailabl e Reason for Visit * Reason Onset Date Comments appt 09/26/2023 Encounter Details Date Type Department Care Team (Late st Contact Info) Description 09/26/2023 Telephone [facility] [address] [place] [address] Sanjay Godoy, DMD [address] [place] [address] appt Social History Tobacco Use Types Packs/Day [...]
== END 2025-05-22 12:34 | disposition home or self-care (01) ==
LOC: HO.HMCH 11:01
PROVIDERS: PCP Internal Medicine; Visit Provider Internal Medicine
DX: M54.41 Lumbago with sciatica, right side (principal); M54.42 Lumbago with sciatica, left side; G89.29 Other chronic pain

== ENCOUNTER → 2025-05-22 11:00 | Outpatient (BNVA) | payer OTHER, SELFPAY | PROVIDERS: Visit Provider Internal Medicine | DX: M54.41 Lumbago with sciatica, right side (principal); M54.42 Lumbago with sciatica, left side; G89.29 Other chronic pain | CPT/HCPCS: 99202 ==